=== PATIENT | female | born 1955 | race Caucasian/White ===

== ENCOUNTER → 2020-07-06 | Outpatient (CLI) | payer BC | END | disposition home or self-care (01) | LOC: LABWHC1 16:56 | PROVIDERS: ATTEND Family Medicine | DX: Z53.9 Procedure and treatment not carried out, unspecified reason (principal) ==

== ENCOUNTER 2020-07-09 13:56 | Emergency (ER) | payer BC ==
[2020-07-09] MEDS ORDERED: ALBUTEROL HFA INHALER INHALATION PRN (14:09)
[2020-07-09] MEDS ORDERED: ACETAMINOPHEN TAB 500 MG TAB PO STA (14:09)
[2020-07-09] MEDS ORDERED: ACETAMINOPHEN TAB 500 MG TAB PO PRN (14:09)
[2020-07-09] MEDS ORDERED: ALBUTEROL HFA INHALER INHALATION STA (14:09)
[2020-07-09] MEDS ORDERED: FAMOTIDINE 20 MG/2 ML VIAL IV STA (14:11)
[2020-07-09] MEDS ORDERED: ONDANSETRON 4 MG/2 ML VIAL IM STA (14:11)
[2020-07-09] MEDS ORDERED: SODIUM CHLORIDE 0.9% 500 ML 500 ML IV STA (14:11)
--- NOTE | 2020-07-09 14:13 | ED ---
General Adult HPI - General Chief complaint: Shortness of Breath Stated complaint: SOB. + covid Time Seen by Provider: 07/09/20 13:58 Source: patient, EMS, RN notes reviewed Mode of arrival: EMS Limitations: no limitations - History of Present Illness Initial comments: Patient is a pleasant 65-year-old female presenting to the emergency Department with multiple complaints. Patient was diagnosed positive for Crohn virus over a week ago. Patient has been to a different ER as well as urgent care since that time. Symptoms have been present for over 10 days now. Patient does have cough with some mild shortness of breath. Cough is nonproductive. Patient does have fever or chills and myalgias. Patient has significant fatigue. Patient does have loss of smell. Patient is having some nausea and some diarrhea. - Related Data Previous Rx's Medication Instructions Recorded Albuterol Sulfate [Albuterol 2 puff INHALATION Q6H PRN #1 07/09/20 Sulfate Hfa] inhaler Allergies Allergy/AdvReac Type Severity Reaction Status Date / Time amoxicillin Allergy Rash/Hives Verified 07/09/20 14:06 cefaclor [From Ceclor] Allergy Rash/Hives Verified 07/09/20 14:06 Review of Systems ROS Statement: Those systems with pertinent positive or pertinent negative responses have been documented in the HPI. ROS Other: All systems not noted in ROS Statement are negative. Constitutional: Reports: fever, chills Eyes: Denies: eye pain ENT: Denies: ear pain Respiratory: Reports: cough, dyspnea Cardiovascular: Denies: chest pain Endocrine: Reports: fatigue Gastrointestinal: Reports: nausea, diarrhea. Denies: abdominal pain Genitourinary: Denies: dysuria Musculoskeletal: Denies: arthralgia Skin: Denies: rash Neurological: Denies: weakness Past Medical History Past Medical History: Diabetes Mellitus, Hypertension Past Surgical History: Hernia Repair, Hysterectomy Smoking Status: Never smoker General Exam Limitations: no limitations General appearance: alert, in no apparent distress Head exam: Present: normocephalic Eye exam: Present: normal appearance Neck exam: Present: normal inspection Respiratory exam: Present: normal lung sounds bilaterally Cardiovascular Exam: Present: regular rate, normal rhythm GI/Abdominal exam: Present: soft. Absent: tenderness Extremities exam: Present: normal inspection. Absent: pedal edema, calf tenderness Neurological exam: Present: alert Psychiatric exam: Present: normal affect, normal mood Skin exam: Present: normal color Course Vital Signs 07/09/20 07/09/20 13:58 14:42 Temperature 99.4 F Pulse Rate 97 94 Respiratory 22 22 Rate Blood Pressure 136/67 132/49 O2 Sat by Pulse 98 96 Oximetry EKG Findings - EKG Comments: EKG Findings:: Normal sinus rhythm and 90. WA 148. QRS 92. QT 3:30. QTC 403. Normal axis. Normal QRS. Nonspecific T waves. Medical Decision Making - Medical Decision Making Patient reevaluated and resting comfortably in bed. Patient updated on results. Patient is feeling better and is comfortable with discharge home. - Lab Data Result diagrams: 07/09/20 14:52 07/09/20 14:52 Lab Results 07/09/20 07/09/20 07/09/20 Range/Units 14:52 14:52 14:52 WBC 8.0 (3.8-10.6) k/uL RBC 4.55 (3.80-5.40) m/uL Hgb 13.3 (11.4-16.0) gm/dL Hct 39.3 (34.0-46.0) % MCV 86.3 (80.0-100.0) fL MCH 29.2 (25.0-35.0) pg MCHC 33.8 (31.0-37.0) g/dL RDW 12.8 (11.5-15.5) % Plt Count 203 (150-450) k/uL MPV 7.2 Neutrophils % 79 % Lymphocytes % 13 % Monocytes % 6 % Eosinophils % 0 % Basophils % 0 % Neutrophils # 6.4 (1.3-7.7) k/uL Lymphocytes # 1.0 (1.0-4.8) k/uL Monocytes # 0.5 (0-1.0) k/uL Eosinophils # 0.0 (0-0.7) k/uL Basophils # 0.0 (0-0.2) k/uL PT 9.6 (9.0-12.0) sec INR 0.9 (<1.2) APTT 22.6 (22.0-30.0) sec Sodium 137 (137-145) mmol/L Potassium 3.6 (3.5-5.1) mmol/L Chloride 102 (98-107) mmol/L Carbon Dioxide 27 (22-30) mmol/L Anion Gap 8 mmol/L BUN 12 (7-17) mg/dL Creatinine 0.62 (0.52-1.04) mg/dL Est GFR (CKD-EPI)AfAm >90 (>60 ml/min/1.73 sqM) Est GFR (CKD-EPI)NonAf >90 (>60 ml/min/1.73 sqM) Glucose 131 H (74-99) mg/dL Plasma Lactic Acid [place] (0.7-2.0) mmol/L Calcium 8.8 (8.4-10.2) mg/dL Magnesium 1.7 (1.6-2.3) mg/dL Total Bilirubin 0.5 (0.2-1.3) mg/dL AST 24 (14-36) U/L ALT 15 (4-34) U/L Alkaline Phosphatase 74 (38-126) U/L Lactate Dehydrogenase 455 (313-618) U/L C-Reactive Protein 41.4 H (<10.0) mg/L Total Protein 6.4 (6.3-8.2) g/dL Albumin 3.5 (3.5-5.0) g/dL 07/09/20 Range/Units 14:52 WBC (3.8-10.6) k/uL RBC (3.80-5.40) m/uL Hgb (11.4-16.0) gm/dL Hct (34.0-46.0) % MCV (80.0-100.0) fL MCH (25.0-35.0) pg MCHC (31.0-37.0) g/dL RDW (11.5-15.5) % Plt Count (150-450) k/uL MPV Neutrophils % % Lymphocytes % % Monocytes % % Eosinophils % % Basophils % % Neutrophils # (1.3-7.7) k/uL Lymphocytes # (1.0-4.8) k/uL Monocytes # (0-1.0) k/uL Eosinophils # (0-0.7) k/uL Basophils # (0-0.2) k/uL PT (9.0-12.0) sec INR (<1.2) APTT (22.0-30.0) sec Sodium (137-145) mmol/L Potassium (3.5-5.1) mmol/L Chloride (98-107) mmol/L Carbon Dioxide (22-30) mmol/L Anion Gap mmol/L BUN (7-17) mg/dL Creatinine (0.52-1.04) mg/dL Est GFR (CKD-EPI)AfAm (>60 ml/min/1.73 sqM) Est GFR (CKD-EPI)NonAf (>60 ml/min/1.73 sqM) Glucose (74-99) mg/dL Plasma Lactic Acid [place] 1.8 (0.7-2.0) mmol/L Calcium (8.4-10.2) mg/dL Magnesium (1.6-2.3) mg/dL Total Bilirubin (0.2-1.3) mg/dL AST (14-36) U/L ALT (4-34) U/L Alkaline Phosphatase (38-126) U/L Lactate Dehydrogenase (313-618) U/L C-Reactive Protein (<10.0) mg/L Total Protein (6.3-8.2) g/dL Albumin (3.5-5.0) g/dL - Radiology Data Radiology results: image reviewed (Chest x-ray shows mild patchy infiltrates bilateral lower lungs) Disposition Clinical Impression: COVID-19 Disposition: HOME SELF-CARE Condition: Stable Instructions (If sedation given, give patient instructions): Acute Bronchitis (ED), Acute Nausea and Vomiting (ED) Additional Instructions: Please do follow-up with your primary care physician in the next day or 2 for recheck. Return for difficulty breathing, not tolerating fluids, uncontrolled fevers, worsening symptoms or any other concerns. [id number] Tylenol as needed. Prescription for inhaler has been sent to [facility] in [place]. Continue [id number] vitamin D, 5000 units daily. Also vitamin C 500 mg twice daily. Also zinc daily. Prescriptions: Albuterol Sulfate [Albuterol Sulfate Hfa] 2 puff INHALATION Q6H PRN #1 inhaler PRN Reason: Shortness Of Breath Is patient prescribed a controlled substance at d/c from ED?: No Referrals: Jacky Hoyt DO [Primary Care Provider] - 1-2 days Time of Disposition: 15:33
--- NOTE | 2020-07-09 14:49 | XR ---
EXAM: XR Chest, 1 View CLINICAL HISTORY: ITS.REASON XR Reason: Suspected COVID-19 pneumonia TECHNIQUE: Frontal view of the chest. COMPARISON: None FINDINGS: Hardware: None. Lungs/pleura: Patchy opacities in the right mid and lower lung and left lower lung. No pleural effusion or pneumothorax. Heart/mediastinum: Normal. No cardiomegaly. Soft tissues: Unremarkable. Bones: No acute fracture. Upper abdomen: Normal. IMPRESSION: Patchy opacities in the right mid and lower lung and left lower lung, concerning for an infectious/inflammatory process.
[2020-07-09 15:10] LABS: African American GFR (CKD) >90 (>60 ml/min/1.73 sqM); Anion Gap 8 mmol/L; Blood Urea Nitrogen 12 mg/dL (7-17); Calcium 8.8 mg/dL (8.4-10.2); Carbon Dioxide 27 mmol/L (22-30); Chloride 102 mmol/L (98-107); Glucose 131 mg/dL (74-99); Magnesium 1.7 mg/dL (1.6-2.3); Non-African American GFR(CKD) >90 (>60 ml/min/1.73 sqM); Potassium 3.6 mmol/L (3.5-5.1); Sodium 137 mmol/L (137-145)
[2020-07-09 15:11] LABS: ALT 15 U/L (4-34); AST 24 U/L (14-36); Albumin 3.5 g/dL (3.5-5.0); Alkaline Phosphatase 74 U/L (38-126); Basophils % (A) 0 %; C Reactive Protein 41.4 mg/L (<10.0); Eosinophils % (A) 0 %; HCT 39.3 % (34.0-46.0); HGB 13.3 gm/dL (11.4-16.0); LDH 455 U/L (313-618); Lymphocytes % (A) 13 %; MCH 29.2 pg (25.0-35.0); MCHC 33.8 g/dL (31.0-37.0); MCV 86.3 fL (80.0-100.0); Mean Platelet Volume 7.2; Monocytes # (A) 0.5 k/uL (0-1.0); Monocytes % (A) 6 %; Neutrophils # (A) 6.4 k/uL (1.3-7.7); Neutrophils % (A) 79 %; Platelet Count 203 k/uL (150-450); RBC 4.55 m/uL (3.80-5.40); RDW 12.8 % (11.5-15.5); Total Bilirubin 0.5 mg/dL (0.2-1.3); Total Protein 6.4 g/dL (6.3-8.2)
[2020-07-09 15:13] LABS: INR 0.9 (<1.2); Partial Thromboplastin Time 22.6 sec (22.0-30.0); Prothrombin Time 9.6 sec (9.0-12.0)
[2020-07-09] MEDS ORDERED: IBUPROFEN 400 MG TAB PO STA (15:43)
[2020-07-09 15:58] VITALS: BP 116/62; PULSE 92; RESP 20; TEMP 99.2
[2020-07-09] MEDS ORDERED: ALBUTEROL HFA INHALER INHALATION SCH (20:00)
[2020-07-09 22:48] LABS: Ferritin 329.4 ng/mL (10.0-291.0)
== END 2020-07-09 15:57 | disposition home or self-care (01) ==
LOC: EC 13:56
DX: U07.1 COVID-19 (principal); Z88.0 Allergy status to penicillin; Z88.1 Allergy status to other antibiotic agents; Z90.710 Acquired absence of both cervix and uterus
CPT/HCPCS: 36415; 94640; 93005; 80053; 82728; 83605; 83615; 83735; 85025; 85610; 85730; 86140; 87040; 84145; 71045; 99285; 96374; 96372; 96361; J2405

== ENCOUNTER → 2020-07-20 | Outpatient (CLI) | payer BC ==
--- NOTE | 2020-07-20 15:55 | XR ---
EXAMINATION TYPE: XR chest 2V DATE OF EXAM: 07/20/2020 COMPARISON: Chest x-ray July 09, 2020 HISTORY: covid pneumonia. TECHNIQUE: Frontal and lateral views of the chest are obtained. FINDINGS: There is improved but some persistent peripheral right midlung opacity. No new focal airsp torsten opacity, pleural effusion, or pneumothorax seen bilaterally. The cardiac silhouette size is stabl e and within normal limits. Bridging osteophytes in thoracic spine redemonstrated. IMPRESSION: Resolving right peripheral and basilar acute infiltrate. No new infiltrate is seen.
== END | disposition home or self-care (01) ==
LOC: RAD 15:21
PROVIDERS: ATTEND Nurse Practitioner Family
DX: U07.1 COVID-19 (principal); J12.89 Other viral pneumonia
CPT/HCPCS: 71046

== ENCOUNTER → 2021-11-29 | Outpatient (CLI) | payer BC ==
--- NOTE | 2021-11-29 10:28 | BD ---
EXAMINATION TYPE: Axial Bone Density DATE OF EXAM: 11/29/2021 COMPARISON: NONE CLINICAL HISTORY: 66 years year old Female. ICD-10 CODE: Z03.89 OBSERVATION FOR SUSPECTED METS, C50. 512 Height: 63.5 Weight: 185 FRAX RISK QUESTIONS: History of Fracture in Adulthood: YES Secondary Osteoporosis: YES 3. Menopause before 45: YES RISK FACTORS HISTORY OF: HX OF LT LOWER LEG, 2009, RT SHOULDER/HUMERUS 2007 Postmenopausal woman: COMPLETE HYST 2000 AT AGE 45 YRS OLD Hyperparathyroidism: NO Adrenal Insufficiency: NO MEDICATIONS: Additional Medications: ANASTROZOLE, BP MEDS, HX OF RADIATION LT BREAST CA, 2020, METFORMIN, LEXAPRO, CHOLESTEROL MEDS, VIT D3 AND CALCIUM Additional History: HX OF BREAST CANCER, DIABETIC, CHOLESTEROL, EXAM MEASUREMENTS: Bone mineral densitometry was performed using the [employer]. Bone mineral density as measured about the Lumbar spine is: ----- L1-L4(G/cm2): 1.154 T Score Values are as follows: ----- L1: -1.5 ----- L2: -0.6 ----- L3: -0.2 ----- L4: 1.3 ----- L1-L4: -0.2 Bone mineral density FIRST BONE DENSITY AT [facility] AT [facility] Bone mineral density about the R hip (g/cm2): 0.767 Bone mineral density about the L hip (g/cm2): 0.805 T Score values are as follows: -----R Neck: -2.3 -----L Neck: -2.3 -----R Total: -1.9 -----L Total: -1.6 Bone mineral density FIRST DEXA AT [facility]......[facility] AT [facility] FRAX%s: The graph provided illustrates a 18.7% chance for a major osteoporotic fx and a 3.4% chance f or the hips probability for fx in 10 years time. IMPRESSION: Osteopenia (T Score between -2.5 and -1). There is slightly increased risk of fracture and the patient may be considered for treatment. Re-Screen 2-5 years. NOTE: T-SCORE=SD OF THE YOUNG ADULT MEAN.
== END | disposition home or self-care (01) ==
LOC: RADBDWWP 09:12
PROVIDERS: ATTEND Internal Medicine Hematology & Oncology
DX: M85.89 Other specified disorders of bone density and structure, multiple sites (principal); Z78.0 Asymptomatic menopausal state
CPT/HCPCS: 77080

== ENCOUNTER 2021-12-16 13:58 | Inpatient (IN) | payer BC, MEDICARE ==
[2021-12-16 16:45] LABS: Glucose,Whole Blood 183 mg/dL (75-99)
[2021-12-16] MEDS: ACETAMINOPHEN TAB 325 MG TAB PO PRN (18:29)
[2021-12-16] MEDS ORDERED: HEPARIN SOD,PORK IN 0.45% NACL 25,000 UNIT in 0.45% NACL 1 250ML.BAG IV SCH (18:30)
[2021-12-16 18:58] LABS: Basophils % (A) 1 %; Eosinophils # (A) 0.1 k/uL (0-0.7); Eosinophils % (A) 1 %; HCT 36.2 % (34.0-46.0); HGB 12.1 gm/dL (11.4-16.0); Lymphocytes # (A) 1.2 k/uL (1.0-4.8); Lymphocytes % (A) 18 %; MCHC 33.5 g/dL (31.0-37.0); MCV 89.6 fL (80.0-100.0); Mean Platelet Volume 6.9; Monocytes # (A) 0.4 k/uL (0-1.0); Monocytes % (A) 6 %; Neutrophils % (A) 72 %; Platelet Count 221 k/uL (150-450); RBC 4.04 m/uL (3.80-5.40); RDW 12.6 % (11.5-15.5); WBC 6.9 k/uL (3.8-10.6)
[2021-12-16 19:03] LABS: INR 0.9 (<1.2); Partial Thromboplastin Time 22.1 sec (22.0-30.0)
[2021-12-16 19:15] LABS: ALT 17 U/L (4-34); AST 20 U/L (14-36); African American GFR (CKD) >90 (>60 ml/min/1.73 sqM); Albumin 3.8 g/dL (3.5-5.0); Alkaline Phosphatase 70 U/L (38-126); Anion Gap 6 mmol/L; Blood Urea Nitrogen 11 mg/dL (7-17); Calcium 8.9 mg/dL (8.4-10.2); Carbon Dioxide 25 mmol/L (22-30); Chloride 105 mmol/L (98-107); Glucose 175 mg/dL (74-99); Non-African American GFR(CKD) >90 (>60 ml/min/1.73 sqM); Potassium 4.3 mmol/L (3.5-5.1); Sodium 136 mmol/L (137-145); Total Bilirubin 0.3 mg/dL (0.2-1.3); Total Protein 6.2 g/dL (6.3-8.2)
[2021-12-16] MEDS: HEPARIN SODIUM 1,000 UN/ML (10ML VL) IV PRN (19:58)
[2021-12-16 20:38] LABS: Glucose,Whole Blood 208 mg/dL (75-99)
[2021-12-16] MEDS: INSULIN ASPART (NovoLOG) 100 UNIT/ML VIAL SQ SCH (20:45)
[2021-12-16] MEDS: ASCORBIC ACID 500 MG TAB PO SCH (20:45)
[2021-12-16] MEDS: ESCITALOPRAM 10 MG TAB PO SCH (20:45)
[2021-12-16] MEDS: METOPROLOL SUCCINATE (ER) 100 MG TAB.ER.24H PO SCH (20:45)
[2021-12-16] MEDS ORDERED: ATORVASTATIN 20 MG TAB PO SCH (21:00)
[2021-12-17] MEDS: HEPARIN SODIUM 1,000 UN/ML (10ML VL) IV PRN ×2 (01:56→08:49)
[2021-12-17 06:32] LABS: Glucose,Whole Blood 194 mg/dL (75-99)
[2021-12-17] MEDS: INSULIN ASPART (NovoLOG) 100 UNIT/ML VIAL SQ SCH ×4 (06:40→20:50)
[2021-12-17] MEDS ORDERED: HEPARIN SODIUM,PORCINE 2,500 UNIT in SODIUM CHLORIDE 0.9% 250 ML IRRIGATION PRN (07:00)
[2021-12-17] MEDS ORDERED: HEPARIN SODIUM,PORCINE 10,000 UNIT in SODIUM CHLORIDE 0.9% 1,000 ML IRRIGATION PRN (07:00)
[2021-12-17 08:08] LABS: Basophils % (A) 0 %; Eosinophils # (A) 0.1 k/uL (0-0.7); Eosinophils % (A) 2 %; HCT 35.6 % (34.0-46.0); HGB 11.8 gm/dL (11.4-16.0); Lymphocytes # (A) 1.4 k/uL (1.0-4.8); Lymphocytes % (A) 28 %; MCH 29.9 pg (25.0-35.0); MCHC 33.2 g/dL (31.0-37.0); MCV 89.9 fL (80.0-100.0); Monocytes # (A) 0.3 k/uL (0-1.0); Monocytes % (A) 6 %; Neutrophils # (A) 3.2 k/uL (1.3-7.7); Neutrophils % (A) 62 %; Platelet Count 201 k/uL (150-450); RBC 3.96 m/uL (3.80-5.40); RDW 12.5 % (11.5-15.5); WBC 5.2 k/uL (3.8-10.6)
[2021-12-17 08:23] LABS: Partial Thromboplastin Time 34.8 sec (22.0-30.0); Prothrombin Time 10.5 sec (9.0-12.0)
[2021-12-17 08:24] LABS: ALT 14 U/L (4-34); AST 19 U/L (14-36); African American GFR (CKD) >90 (>60 ml/min/1.73 sqM); Albumin 3.6 g/dL (3.5-5.0); Alkaline Phosphatase 70 U/L (38-126); Anion Gap 4 mmol/L; Blood Urea Nitrogen 10 mg/dL (7-17); Calcium 8.5 mg/dL (8.4-10.2); Carbon Dioxide 26 mmol/L (22-30); Chloride 107 mmol/L (98-107); Glucose 185 mg/dL (74-99); Non-African American GFR(CKD) >90 (>60 ml/min/1.73 sqM); Potassium 3.9 mmol/L (3.5-5.1); Sodium 137 mmol/L (137-145); Total Bilirubin 0.2 mg/dL (0.2-1.3); Total Protein 5.9 g/dL (6.3-8.2)
[2021-12-17] MEDS: ASPIRIN 325 MG TAB PO SCH (08:42)
[2021-12-17] MEDS: CHOLECALCIFEROL 25 MCG (1000 IU) TABLET PO SCH (08:42)
--- NOTE | 2021-12-17 08:58 | P.GSCN ---
History of Present Illness Consult date: 12/17/21 Reason for Consult: Coronary artery disease, non-ST elevated myocardial infarction this admission Requesting physician: Garry Poole History of present illness: This is a 66-year-old female patient who follows with Dr. Jacky Hoyt on an outpatient basis for her primary care. She has a past medical history significant for hypertension, hyperlipidemia, type 2 diabetes mellitus, obesity, anxiety, breast cancer with a left lumpectomy and 15 radiation treatments in May 2021, she is a lifetime nonsmoker and has a family history of early onset coronary artery disease with her dad having a myocardial infarction at age 51. She presented to [facility] on Monday evening 12/15/2021 with complaints of substernal chest pain associated with some shortness of breath. She reports that she has been having these episodes of chest pain off and on for the past 2 weeks, but this current episode was bad enough she felt she needed to seek medical attention. She denies any recent fever, chills, nausea, vomiting, lightheadedness, presyncope, syncope or palpitations. Labs from [facility] showed a WBC count of 5.6, hemoglobin 12.6, hematocrit 36.9, platelets 209, sodium 135, potassium 3.9, BUN 12, creatinine 0.9, glucose 388, proBNP 518, and an abnormal troponin. Subsequently, due to the patient's presenting symptoms and abnormal troponins she was admitted for further evaluation and treatment. A transthoracic 2-D echocardiogram was completed yesterday 12/16/2021 which demonstrated her left ventricular systolic function to be mildly decreased with an ejection fraction of 40-45%, moderate mitral valve regurgitation, trace tricuspid and no pericardial or pleural effusion. The patient also underwent a cardiac catheterization which demonstrated a 50-60% stenosis to her midportion of her right coronary artery, a critical lesion to her obtuse marginal branch of her circumflex coronary artery, a subtotally occluded circumflex coronary artery and a 90-95% stenosis to the takeoff of her proximal left anterior descending coronary artery. Due to the findings on the cardiac catheterization the patient was subsequently transferred here to [facility] for further evaluation and treatment recommendations from cardiothoracic surgery. Review of Systems A 14 point review of systems was completed and was negative except as mentioned in the HPI. Past Medical History Past Medical History: Cancer, Diabetes Mellitus, Hyperlipidemia, Hypertension Additional Past Medical History / Comment(s): Left breast CA History of Any Multi-Drug Resistant Organisms: None Reported Past Surgical History: Section, Hernia Repair, Hysterectomy Additional Past Surgical History / Comment(s): Left breast lumpectomy, with 15 radiation treatments in May 2021 Past Anesthesia/Blood Transfusion Reactions: No Reported Reaction Past Psychological History: Anxiety Smoking Status: Never smoker Past Alcohol Use History: None Reported Past Drug Use History: None Reported - Past Family History Father Family Medical History: Coronary Artery Disease (CAD), Myocardial Infarction (LA) Additional Family Medical History / Comment(s): CABG at 51, at 61 Mother Family Medical History: Hypertension Medications and Allergies Home Medications Medication Instructions Recorded Confirmed Type Aspirin EC [Ecotrin Low Dose] 81 mg PO HS 07/09/20 12/16/21 History Escitalopram Oxalate [Lexapro] 10 mg PO HS 07/09/20 12/16/21 History Metoprolol Succinate (ER) [Toprol 100 mg PO HS 07/09/20 12/16/21 History Xl] Alendronate Sodium [Fosamax] 70 mg PO FR@0900 12/16/21 12/16/21 History Anastrozole [Arimidex] 1 mg PO HS 12/16/21 12/16/21 History Ascorbic Acid [Vitamin C] 1,000 mg PO HS 12/16/21 12/16/21 History Atorvastatin [Lipitor] 20 mg PO HS 12/16/21 12/16/21 History Cholecalciferol [Vitamin D3 (25 25 mcg PO DAILY 12/16/21 12/16/21 History Mcg = 1000 Iu)] metFORMIN HCL [Glucophage] 2,000 mg PO HS 12/16/21 12/16/21 History Allergies Allergy/AdvReac Type Severity Reaction Status Date / Time amoxicillin Allergy Rash/Hives Verified 12/16/21 16:57 cefaclor [From Ceclor] Allergy Rash/Hives Verified 12/16/21 16:57 Surgical - Exam Vital Signs Temp Pulse Resp BP Pulse Ox 97.8 F 92 18 138/67 95 12/16/21 16:00 12/16/21 16:00 12/16/21 16:00 12/16/21 16:00 12/16/21 16:00 - General Lying in bed on the third floor cardiac stepdown unit, is pleasant, cooperative, and is in no acute apparent distress. well developed, well nourished, no distress, no pain, obese - Eyes PERRL, normal ocular movement, no pale, no icteric - ENT normal pinna, normal nares, normal mucosa, no hearing loss, no congestion - Neck Neck is supple, no lymphadenopathy. no masses, no bruits, trachea midline, no venous distension - Respiratory Lungs sounds essentially clear throughout, no wheezes, rhonchi or crackles. Respirations are symmetrical and nonlabored. - Cardiovascular Regular rhythm and rate. S1 and S2 present, negative for S3, gallop or murmur. No edema present. - Abdomen Abdomen is soft, nontender and nondistended. Active bowel sounds present all 4 abdominal quadrants. No guarding or rigidity. Umbilical hernia. - Integumentary Skin is warm and dry, no clubbing or cyanosis present. no rash, no growths, no abnormal pigmentation - Neurologic No focal deficits. normal coordination, normal sensation - Musculoskeletal Strength equal bilateral. normal gait, normal posture - Psychiatric oriented to time, oriented to person, oriented to place, speech is normal, memory intact Results - Labs 12/17/21 07:29 12/17/21 07:29 Abnormal Lab Results - Last 24 Hours (Table) 12/16/21 12/16/21 12/16/21 Range/Units 16:43 18:33 20:20 APTT (22.0-30.0) sec Sodium 136 L (137-145) mmol/L Glucose 175 H (74-99) mg/dL POC Glucose (mg/dL) 183 H 208 H (75-99) mg/dL Total Protein 6.2 L (6.3-8.2) g/dL 12/17/21 12/17/21 12/17/21 Range/Units 06:18 07:29 07:29 APTT 34.8 H (22.0-30.0) sec Sodium (137-145) mmol/L Glucose 185 H (74-99) mg/dL POC Glucose (mg/dL) 194 H (75-99) mg/dL Total Protein 5.9 L (6.3-8.2) g/dL Diabetes panel 12/16/21 12/17/21 Range/Units 18:33 07:29 Sodium 136 L 137 (137-145) mmol/L Potassium 4.3 3.9 (3.5-5.1) mmol/L Chloride 105 107 (98-107) mmol/L Carbon Dioxide 25 26 (22-30) mmol/L BUN 11 10 (7-17) mg/dL Creatinine 0.64 0.61 (0.52-1.04) mg/dL Glucose 175 H 185 H (74-99) mg/dL Calcium 8.9 8.5 (8.4-10.2) mg/dL AST 20 19 (14-36) U/L ALT 17 14 (4-34) U/L Alkaline Phosphatase 70 70 (38-126) U/L Total Protein 6.2 L 5.9 L (6.3-8.2) g/dL Albumin 3.8 3.6 (3.5-5.0) g/dL Calcium panel 12/16/21 12/17/21 Range/Units 18:33 07:29 Calcium 8.9 8.5 (8.4-10.2) mg/dL Albumin 3.8 3.6 (3.5-5.0) g/dL Pituitary panel 12/16/21 12/17/21 Range/Units 18:33 07:29 Sodium 136 L 137 (137-145) mmol/L Potassium 4.3 3.9 (3.5-5.1) mmol/L Chloride 105 107 (98-107) mmol/L Carbon Dioxide 25 26 (22-30) mmol/L BUN 11 10 (7-17) mg/dL Creatinine 0.64 0.61 (0.52-1.04) mg/dL Glucose 175 H 185 H (74-99) mg/dL Calcium 8.9 8.5 (8.4-10.2) mg/dL Adrenal panel 12/16/21 12/17/21 Range/Units 18:33 07:29 Sodium 136 L 137 (137-145) mmol/L Potassium 4.3 3.9 (3.5-5.1) mmol/L Chloride 105 107 (98-107) mmol/L Carbon Dioxide 25 26 (22-30) mmol/L BUN 11 10 (7-17) mg/dL Creatinine 0.64 0.61 (0.52-1.04) mg/dL Glucose 175 H 185 H (74-99) mg/dL Calcium 8.9 8.5 (8.4-10.2) mg/dL Total Bilirubin 0.3 0.2 (0.2-1.3) mg/dL AST 20 19 (14-36) U/L ALT 17 14 (4-34) U/L Alkaline Phosphatase 70 70 (38-126) U/L Total Protein 6.2 L 5.9 L (6.3-8.2) g/dL Albumin 3.8 3.6 (3.5-5.0) g/dL Assessment and Plan Assessment: 1. Symptomatic multivessel coronary artery disease 2. Non-ST elevated myocardial infarction this admission 3. Hypertension 4. Hyperlipidemia 5. Type 2 diabetes mellitus, admission glucose 388 6. History of breast cancer, status post left lumpectomy with 15 radiation treatment in May 2021 7. Family history of early onset coronary artery disease with her father having a myocardial infarction at age 51 and at age 61 8. Lifetime nonsmoker Plan: The patient was seen and examined at her bedside on the cardiac stepdown unit. Her chart and diagnostics were reviewed. Her case was discussed in detail with Dr. Conchita Nolan from cardiothoracic surgery. Preoperative testing and preoperative teaching has been initiated. Once her preoperative testing has been completed an STS risk score will be calculated in discussed with the patient. We will obtain a 5 m walk test. Medical management and other com orbidities per primary care service. Continue to optimize medical management with aspirin, statin and beta be. Heparin drip management per cardiology recommendations. More recommendations to follow based on patient's clinical course. Thank you Dr. Poole for this consult and we look forward to working with you in the care of this patient. Patient seen and examined. Cardiac catheterization reviewed. Non-STEMI with nonsignificant RCA disease, significant diagonal and obtuse marginal artery stenosis with an unknown LAD anatomy that could be 100% occluded at the takeoff of diagonal. Poorly controlled diabetes. EF 40-45% with moderate mitral valve regurgitation. No evidence of anterior wall dysfunction or apical dyskinesia. EKG shows no Q waves. Case discussed with Dr. Taylor and Dr. Puente. I would not be opposed to an initial PCI strategy to her obtuse marginal artery and what seems to be a diagonal artery with aggressive guideline Dir. medical therapy rather than a surgical revascularization strategy despite being diabetic. CONCHITA NOLAN MD I have personally seen and examined the patient, performed the documentation and the assessment and plan as written. Number of minutes spent on the visit 30 minutes . Bernard WORTHINGTON
[2021-12-17 09:21] LABS: Magnesium 1.8 mg/dL (1.6-2.3)
[2021-12-17] MEDS ORDERED: ALPRAZolam 0.25 MG TAB PO PRN (10:21)
[2021-12-17] MEDS ORDERED: NITROGLYCERIN SL TABS 0.4 MG TAB SUBLINGUAL PRN (10:21)
[2021-12-17] MEDS: SODIUM CHLORIDE 0.9% 1,000 ML in EMPTY BAG 1 BAG IV SCH ×3 (10:37→20:51)
[2021-12-17 11:32] LABS: Appearance,Urine Clear (Clear); Bilirubin,Urine Negative (Negative); Blood,Urine Negative (Negative); Color,Urine Yellow; Glucose,Urine (UA) 4+ (Negative); Ketones,Urine Trace (Negative); Leukocyte Esterase,Urine Negative (Negative); Nitrite,Urine Negative (Negative); PH, Urine 5.5 (5.0-8.0); Protein,Urine Trace (Negative); Specific Gravity,Urine 1.023 (1.001-1.035); Urobilinogen,Urine <2.0 mg/dL (<2.0)
[2021-12-17 11:48] LABS: Glucose,Whole Blood 258 mg/dL (75-99)
[2021-12-17] MEDS ORDERED: HEPARIN SODIUM 1,000 UN/ML (10ML VL) ONE ×2 (12:27→13:52)
[2021-12-17] MEDS ORDERED: IV FLUID CONTINUATION 150 ML IV ONE (12:29)
[2021-12-17] MEDS ORDERED: MIDAZOLAM 2 MG/2 ML VIAL IVP ONE ×2 (12:30→13:02)
[2021-12-17] MEDS ORDERED: LIDOCAINE 1% INJ 10MG/ML (30 ML VIAL-PF) SQ ONE (12:34)
[2021-12-17] MEDS ORDERED: fentaNYL (PF) 50 MCG/ML 2 ML AMP ONE (12:39)
[2021-12-17] MEDS: fentaNYL (PF) 50 MCG/ML 2 ML AMP IVP ONE ×2 (12:40→12:43)
[2021-12-17] MEDS: HEPARIN SODIUM 1,000 UN/ML (10ML VL) IVP ONE ×3 (12:47→13:24)
[2021-12-17] MEDS ORDERED: niCARdipine 25 MG/10 ML VIAL ONE (12:53)
[2021-12-17] MEDS ORDERED: NITROGLYCERIN 1000MCG/10ML SYRINGE INTRACORON ONE (13:13)
[2021-12-17] MEDS ORDERED: HEPARIN SODIUM 1,000 UN/ML (10ML VL) IVP ONE (13:53)
[2021-12-17] MEDS ORDERED: TICAGRELOR 90 MG TAB ONE (13:55)
[2021-12-17] MEDS ORDERED: SODIUM CHLORIDE 0.9% 1,000 ML IV ONE (13:57)
[2021-12-17] MEDS ORDERED: IOPAMIDOL-370 125ML BTL INJ ONE (13:57)
[2021-12-17] MEDS ORDERED: TICAGRELOR 90 MG TAB PO ONE (13:57)
[2021-12-17] MEDS ORDERED: ATROPINE SULFATE 0.1 MG/ML 10ML SYRINGE IV PRN (14:08)
[2021-12-17] MEDS ORDERED: ZOLPIDEM 5 MG TAB PO PRN (14:08)
[2021-12-17] MEDS ORDERED: MAG HYDROX/AL HYDROX/SIMETH 30 ML CUP PO PRN (14:08)
[2021-12-17] MEDS ORDERED: RX INFO: IV CONTRAST WAS GIVEN 1 EACH MISC MISCELLANE PRN (14:08)
[2021-12-17] MEDS ORDERED: SODIUM CHLORIDE 0.9% 1,000 ML in EMPTY BAG 1 BAG IV SCH (14:15)
--- NOTE | 2021-12-17 14:18 | P.PCN ---
Date of Procedure: 12/17/21 Operative Findings: PERCUTANEOUS CORONARY INTERVENTION Performing physician Garry Poole M.D. Procedure Performed: 1. Successful stenting of the first obtuse marginal branch of the LCx using 2.75 x 15 mm Xience drug-eluting stent with an excellent angiographic results. 2. Successful stending of the proximal LAD using 3.0 x 15 mm Xience drug-eluting stent with an excellent angiographic result. 3. Placement of Impella in the left ventricle 4. Selective right common femoral artery angiogram 5. Ultrasound-guided access of the right common femoral artery 6. Left heart catheterization Indication: This is a 66-year-old female patient with diabetes and hypertension and dyslipidemia who presented initially to [facility] with chest discomfort and was diagnosed with acute coronary syndrome. She underwent a heart catheterization over there and that revealed critical 2 vessels CAD. She was seen by cardiac thoracic surgeon. She deemed to be not a good candidate for bypass surgery. For that reason she was brought today to undergo an intervention Approach: Right common femoral artery Complications: None Level of Sedation: Moderate with a sedation length of 90 minutes Procedure Discussion: Please refer to diagnosed sick heart catheterization was performed at [facility] The patient was brought to the cardiac geophysical laboratory supervisor. The right common femoral artery was cannulated using puncture technique under ultrasound guidance, the micropuncture wire passed easily then the micropuncture sheath was advanced over the wire. The sheath and dilator were pulled out and I did selective right common femoral artery to assure a good position of the sheath. After that I did advanced an 035 wire. Then I placed a 6-Malawian sheath. Subsequently I placed two perclose at 10:00 and 2:00 o'clock. Subsequently I placed a stiff 035 wire which was an Amplatzer wire in the right femoral sheath which was now 8-Malawian sheath. After that I upgraded my sheath in the 14-Malawian sheath using an 8 and 10 and 12 dilator was. At that point anticoagulation was initiated using heparin with continuous ACT monitoring. Subsequently across the aortic valve using 035 wire and the pigtail catheter. Subsequently I did pulled 035 wire and I advanced an 018 wire in the pigtail catheter to the apex of the LV. Then I advanced the Impella over an 018 wire to the LV. We assured good opposition under fluoroscopy guidance and subsequently it was turned on. Then I did engage the left main using an EBU 3.5 guiding catheter. I rewire the LCx initially then OM using a whisper wire. Predilatation was performed using 2.5 mm balloon before I deployed 2.75 x 15 mm stent where the stent was positioned under fluoroscopy guidance and deployed under its nominal pressure. The following angiogram showed excellent angiographic results. Attempting wire in the LAD was unsuccessful because of the guide was deep seated in the left main which was very short and going toward the left circumflex. For that reason I exchanged my EBU guide into JL 4 short-tipped guide. Then I wire the LAD using a whisper wire. Attempting advancing the balloon was unsuccessful I did after that wire the LAD using a jesus wire. With that I was able to advance 2.5 x 12 mm balloon were the balloon was inflated under 18 angelito for 20 seconds. After that I placed 3.0 x 15 mm stent where the stent was positioned under fluoroscopy guidance and deployed under its nominal pressure. The final angiogram showed good angiographic results and the procedure was completed without any complication Please note that I did left heart catheterization using the pigtail catheter and the LVEDP was 20 mmHg. After that and after the procedure was completed impella was pulled out completely and I did close the groin using the two perclose with excellent hemostasis by the end. Postprocedure Management: 1. Dual antiplatelet therapy for at least 12 months. The patient will be on aspirin as well as Brilinta 2. Aggressive cholesterol control 3. Follow-up with the patient
[2021-12-17 14:42] LABS: Glucose,Whole Blood 172 mg/dL (75-99)
[2021-12-17 15:12] LABS: Chol/HDL Ratio 3.77 Ratio; LDL Cholesterol,Calculated -2.2 mg/dL (0.0-131.0)
[2021-12-17 15:16] LABS: Hepatitis A Antibody IgM Nonreactive (Nonreactive); Hepatitis B Core IgM Nonreactive (Nonreactive); Hepatitis B Surface Antigen Nonreactive (Nonreactive); Hepatitis C IgG Antibody Nonreactive (Nonreactive)
--- NOTE | 2021-12-17 15:17 | CONS ---
CONSULTATION This is a 66-year-old lady who was transferred from [facility] when she presented there with chest pain and had a mild troponin elevation and cardiac cath revealed total occlusion of LAD with a significant lesion in the diagonal and also obtuse marginal. Dominant RCA had no critical lesions. She was advised to be transferred here for surgical consultation with Dr. Nolan. Following the consultation, Dr. Nolan felt that she is better off with percutaneous intervention. Dr. Poole will therefore perform two-vessel intervention, which will be a high-risk intervention. I saw the patient this morning. She is comfortable resting without any chest pain, shortness of breath or palpitations. She understands the risks, benefits and rationale related to the procedure and wishes to proceed. She has multiple comorbid conditions in the form of type 2 diabetes, hypertension and hyperlipidemia. Physical exam revealed that vital signs are stable. There is no JVD. S1-S2 heard normally. Short systolic murmur is audible at the base. Lungs reveal bilateral decent air entry. Abdomen is soft, nontender. Lower extremities reveal normal pulses. No edema. Central nervous system is normal. IMPRESSION: 1. Ugn-TE-ydmoodktr myocardial infarction with significant coronary artery disease. She was evaluated by Dr. Nolan, who felt that percutaneous approach would be superior to surgical. 2. Type 2 diabetes. RECOMMENDATIONS: Patient will proceed with PCI of two vessels to be performed by Dr. Poole. MMODL / NURAN: [id number] /
[2021-12-17 16:12] LABS: Basophils % (A) 1 %; Eosinophils # (A) 0.1 k/uL (0-0.7); Eosinophils % (A) 2 %; HCT 34.6 % (34.0-46.0); HGB 11.7 gm/dL (11.4-16.0); Lymphocytes # (A) 1.3 k/uL (1.0-4.8); Lymphocytes % (A) 26 %; MCH 30.3 pg (25.0-35.0); MCV 89.2 fL (80.0-100.0); Mean Platelet Volume 6.8; Monocytes # (A) 0.3 k/uL (0-1.0); Monocytes % (A) 7 %; Neutrophils # (A) 3.1 k/uL (1.3-7.7); Neutrophils % (A) 62 %; Platelet Count 216 k/uL (150-450); RBC 3.87 m/uL (3.80-5.40); RDW 12.4 % (11.5-15.5)
--- NOTE | 2021-12-17 16:19 | CT ---
EXAMINATION TYPE: CT brain wo con DATE OF EXAM: 12/17/2021 HISTORY: cva. Acute onset neuro deficit. CT DLP: 1182.6 mGycm. Automated Exposure Control for Dose Reduction was Utilized. TECHNIQUE: CT scan of the head is performed without contrast. COMPARISON: None. FINDINGS: There is no acute intracranial hemorrhage or midline shift identified. Ventricles and sul ci are within normal limits in size for patient's age. Hernandez-white matter differentiation is maintaine d. Some patchy cerumen in the deep external auditory canals bilaterally. The globes are intact and t he visualized sinuses are clear. IMPRESSION: No acute intracranial hemorrhage or midline shift.
[2021-12-17 16:23] LABS: Partial Thromboplastin Time 57.7 sec (22.0-30.0); Prothrombin Time 10.4 sec (9.0-12.0)
[2021-12-17 16:36] VITALS: BMI 32.5
--- NOTE | 2021-12-17 17:10 | CT ---
EXAMINATION TYPE: CODE STROKE: CTA head neck CT DLP: 607.7 mGycm, Automated exposure control for dose reduction was used. DATE OF EXAM: 12/17/2021 4:45 PM COMPARISON: CT brain same day.. CLINICAL INDICATION:Female, 66 years old with history of stroke;, cva TECHNIQUE: Axially acquired helical CT angiogram of the head and neck was obtained with contrast util izing 75 cc of Isovue-370 administered intravenously. Axial images are supplemented with 3D reconstru ctions which were post-processed at an independent workstation. NASCET criteria used. FINDINGS: CTA HEAD: No evidence of acute intracranial hemorrhage, mass effect, or midline shift. The ventricles, sulci, a nd cisterns are unremarkable. The visualized portions of the internal carotid arteries, middle cerebral arteries, anterior cerebral arteries, and posterior cerebral arteries are patent. The basilar and vertebral arteries are patent. CTA NECK: Right Carotid System: The common carotid artery and external carotid artery are patent. The carotid bifurcation demonstrate s no evidence of hemodynamically significant stenosis. The remaining portions of the internal carotid artery demonstrate normal size without significant narrowing. Left Carotid System: The common carotid artery and external carotid artery are patent. The carotid bifurcation demonstrate s no evidence of hemodynamically significant stenosis. The remaining portions of the internal carotid artery demonstrate normal size without significant narrowing. Vertebral arteries are patent without evidence hemodynamically significant stenosis. There is a three-vessel aortic arch. The origins of the great vessels are patent. No evidence of hemo dynamically significant stenosis. IMPRESSION: 1. No evidence of dissection of the cervical internal carotid arteries or vertebral arteries or any e vidence of significant stenosis at the carotid bifurcations. 2. No evidence of high-grade stenosis or intracranial aneurysm.
--- NOTE | 2021-12-17 17:23 | HP ---
HISTORY AND PHYSICAL CHIEF COMPLAINT: Chest pain. HISTORY OF PRESENT ILLNESS: This 66-year-old woman with a past medical history of diabetes, hypertension and hyperlipidemia was admitted to [facility]. The patient had features of acute bsw-WZ-zjhlcsj-elevation myocardial infarction. Patient had cardiac and patient had multivessel disease. The patient was referred for possible cardiac surgery evaluation, which is ongoing. Patient is also being planned for cardiac catheterization and stenting. There is no history of any fever, rigor or chills. The patient is followed by Dr. Jacky Hoyt in the outpatient setting. The patient underwent stent and impella. had a breif period of aphasia. Seen by neuro. Dr Soto: Medications vs tia. Her ordered 2 d echo. PAST MEDICAL HISTORY: Diabetes mellitus, hypertension, hyperlipidemia. MEDICATIONS: Home medications prior to admission reviewed. They include metformin. Doses and the rest of the medications are reviewed. ALLERGIES: AMOXICILLIN. FAMILY HISTORY: History of CAD. SOCIAL HISTORY: No history of smoking. REVIEW OF SYSTEMS: Fourteen-point review of systems negative except as mentioned earlier. PHYSICAL EXAMINATION: Pulse is 83, blood pressure 150/57, respiration 18. HEENT: Conjunctivae normal. NECK: No jugular venous distention. CARDIOVASCULAR: S1, S2 muffled. RESPIRATION: Breath sounds diminished at the bases. No rhonchi. No crackles. ABDOMEN: Soft, nontender. LEGS: No edema. No swelling. NERVOUS SYSTEM: No focal deficit. SKIN: No ulcer, rash, bleeding. JOINTS: No active deforming arthropathy. LABS: Reviewed. Glucose 185. ASSESSMENT: 1. Acute xkg-YF-xbgkwtk-elevation myocardial infarction, status post cardiac and multivessel coronary artery disease. Tia vs meication induced apahsia, change in mental status. 2. Diabetes mellitus, type 2. 3. Hypertension. 4. Hyperlipidemia. RECOMMENDATIONS AND DISCUSSION: I recommend to continue current medications, continue with the monitoring, symptomatic treatment. Closely follow with Cardiothoracic Surgery and Cardiology. Antiplatelet agents. Cardiac catheterization and possible stenting today. Prognosis guarded. Further recommendations to follow. See orders for further details.C/W antiplatelts, Neurochecks, 2 decho. See orders for details. MMODL / IJN: [id number] / MTDD
[2021-12-17 17:28] LABS: Glucose,Whole Blood 144 mg/dL (75-99)
[2021-12-17] MEDS: PANTOPRAZOLE 40 MG TABLET PO SCH (17:37)
[2021-12-17 20:21] LABS: Glucose,Whole Blood 168 mg/dL (75-99)
[2021-12-17] MEDS: ATORVASTATIN 80 MG TAB PO SCH (20:49)
[2021-12-17] MEDS: ASCORBIC ACID 500 MG TAB PO SCH (20:49)
[2021-12-17] MEDS: ACETAMINOPHEN TAB 325 MG TAB PO PRN (20:49)
[2021-12-17] MEDS: TICAGRELOR 90 MG TAB PO SCH (20:49)
[2021-12-17] MEDS: METOPROLOL SUCCINATE (ER) 100 MG TAB.ER.24H PO SCH (20:50)
[2021-12-17] MEDS: ESCITALOPRAM 10 MG TAB PO SCH (20:50)
[2021-12-17] MEDS: MUPIROCIN 2% OINT 22 GM TUBE NASAL SCH (20:50)
[2021-12-17] MEDS: NITROGLYCERIN SL TABS 0.4 MG TAB SUBLINGUAL PRN ×2 (23:17→23:29)
[2021-12-17] MEDS: ALPRAZolam 0.5 MG TAB PO PRN (23:30)
[2021-12-18 06:07] LABS: Basophils % (A) 0 %; Eosinophils # (A) 0.1 k/uL (0-0.7); Eosinophils % (A) 1 %; HCT 32.8 % (34.0-46.0); HGB 11.1 gm/dL (11.4-16.0); Lymphocytes % (A) 15 %; MCH 30.6 pg (25.0-35.0); MCHC 33.9 g/dL (31.0-37.0); MCV 90.4 fL (80.0-100.0); Mean Platelet Volume 7.1; Monocytes # (A) 0.4 k/uL (0-1.0); Monocytes % (A) 7 %; Neutrophils # (A) 4.9 k/uL (1.3-7.7); Neutrophils % (A) 74 %; Platelet Count 205 k/uL (150-450); RBC 3.63 m/uL (3.80-5.40); RDW 12.6 % (11.5-15.5); WBC 6.5 k/uL (3.8-10.6)
[2021-12-18 06:19] LABS: African American GFR (CKD) >90 (>60 ml/min/1.73 sqM); Anion Gap 7 mmol/L; Blood Urea Nitrogen 6 mg/dL (7-17); Calcium 8.6 mg/dL (8.4-10.2); Carbon Dioxide 24 mmol/L (22-30); Chloride 106 mmol/L (98-107); Glucose 157 mg/dL (74-99); Non-African American GFR(CKD) >90 (>60 ml/min/1.73 sqM); Potassium 3.8 mmol/L (3.5-5.1); Sodium 137 mmol/L (137-145)
[2021-12-18 06:43] LABS: Glucose,Whole Blood 181 mg/dL (75-99)
[2021-12-18] MEDS: INSULIN ASPART (NovoLOG) 100 UNIT/ML VIAL SQ SCH ×4 (06:50→20:38)
[2021-12-18] MEDS: PANTOPRAZOLE 40 MG TABLET PO SCH (06:50)
--- NOTE | 2021-12-18 10:02 | P.CNNES ---
History of Present Illness Consult date: 12/17/21 Requesting physician: Garry Poole Reason for Consult: Rule out stroke/strole code History of Present Illness: Patient is a 66-year-old female who had suffered from chest pain yesterday. Patient initially presented to [facility] and was diagnosed with non- STEMI. Patient underwent cardiac catheterization with right radial approach, and was found to have some occlusion and narrowing in the LAD and circumflex. Patient was considered a candidate for open heart surgery. Patient was transferred to [facility], and underwent another cardiac catheterization today at 2 PM and Impala device was used, and 2 stents were deployed to the first obtuse marginal branch of the left circumflex and another stent to the proximal LAD. Patient was subsequently transferred to ICU. Patient's neuro checks were int act. Patient was also given 75 g of fentanyl and 3 mg of Versed during the procedure. Patient went to sleep. The nurses woke her up at 3:25 PM, when patient was noted to have an episode of aphasia, in which she was unable to express herself. She had no paralysis, facial droop or weakness of the extremities. Stroke code was activated. Her NIH stroke scale was reported as 4 related to aphasia. Her significant expressive aphasia lasted for 1 minute and then rapidly improved and the symptoms will completely resolved in "a couple minutes" as per statement of the nurse. At present her NIH stroke scale is 0. Patient has received Brilinta 120 mg loading dose at 1:57 PM and heparin 1200 unit IV loading dose at 1:53 PM. Patient underwent stat computed tomography scan of the head, which revealed no acute intracranial process. I personally reviewed CT head and agree with the findings. CTA of head and neck was ordered, which revealed no evidence of dissection of the cervical internal carotid arteries or vertebral arteries or any evidence of significant stenosis at the carotid bifurcation. No evidence of high-grade stenosis or intracranial aneurysm. I came to see patient shortly after, and patient was doing well, with no focal deficits. Patient denies any headache. No numbness tingling focal weakness. Patient's home medications was Lexapro 10 mg aspirin 81 mg, metoprolol, metformin, vitamin D, Lipitor 20 mg and Fosamax. Her blood test shows normal CBC, PT is 10.5, INR 1.0 and PTT 34.8. Chem-7 is normal. Hepatic panel normal. Review of Systems All 14 points of review systems reviewed, unremarkable except as mentioned in HPI. Denies any chest pain, abdominal pain at this time. No fever or chills. Past Medical History Past Medical History: Cancer, Diabetes Mellitus, Hyperlipidemia, Hypertension Additional Past Medical History / Comment(s): Left breast CA History of Any Multi-Drug Resistant Organisms: None Reported Past Surgical History: Section, Hernia Repair, Hysterectomy Additional Past Surgical History / Comment(s): Left breast lumpectomy, with 15 radiation treatments in May 2021 Past Anesthesia/Blood Transfusion Reactions: No Reported Reaction Past Psychological History: Anxiety Smoking Status: Never smoker Past Alcohol Use History: None Reported Past Drug Use History: None Reported - Past Family History Father Family Medical History: Coronary Artery Disease (CAD), Myocardial Infarction ([place]) Additional Family Medical History / Comment(s): CABG at 51, at 61 Mother Family Medical History: Hypertension Medications and Allergies Home Medications Medication Instructions Recorded Confirmed Type Aspirin EC [Ecotrin Low Dose] 81 mg PO HS 07/09/20 12/16/21 History Escitalopram Oxalate [Lexapro] 10 mg PO HS 07/09/20 12/16/21 History Metoprolol Succinate (ER) [Toprol 100 mg PO HS 07/09/20 12/16/21 History Xl] Alendronate Sodium [Fosamax] 70 mg PO FR@0900 12/16/21 12/16/21 History Anastrozole [Arimidex] 1 mg PO HS 12/16/21 12/16/21 History Ascorbic Acid [Vitamin C] 1,000 mg PO HS 12/16/21 12/16/21 History Atorvastatin [Lipitor] 20 mg PO HS 12/16/21 12/16/21 History Cholecalciferol [Vitamin D3 (25 25 mcg PO DAILY 12/16/21 12/16/21 History Mcg = 1000 Iu)] metFORMIN HCL [Glucophage] 2,000 mg PO HS 12/16/21 12/16/21 History Allergies Allergy/AdvReac Type Severity Reaction Status Date / Time amoxicillin Allergy Rash/Hives Verified 12/16/21 16:57 cefaclor [From Ceclor] Allergy Rash/Hives Verified 12/16/21 16:57 Physical Examination - Vital Signs Vital Signs: Vital Signs Temp Pulse Resp BP Pulse Ox 12/17/21 15:21 94 L 12/17/21 11:15 85 18 129/74 97 12/17/21 08:41 97.9 F 83 18 155/77 96 12/17/21 08:00 83 12/17/21 04:00 97.9 F 80 16 150/78 93 L 12/17/21 02:00 81 16 12/17/21 00:00 81 16 139/73 95 12/16/21 20:45 97.9 F 90 18 140/100 96 12/16/21 20:00 90 18 12/16/21 16:00 97.8 F 92 18 138/67 95 Intake and Output 12/17/21 12/17/21 12/17/21 06:59 14:59 22:59 Intake Total 62.667 216.969 Balance 62.667 216.969 Intake: IV 100 Intake, IV Titration 62.667 116.969 Amount Heparin Sod,Pork in 0.45% 62.667 116.969 NaCl 25,000 unit In 0.45 % NaCl 1 250ml.bag @ 11.6 UNITS/KG/HR 9.997 mls/hr IV .Q24H [facility] Rx#: [id number] Other: Voiding Method Toilet # Voids 1 1 Weight 86.1 kg Patient is an elderly female, in no acute distress. Patient is alert awake oriented to time place and person. Speech and language functions are normal. Attention, concentration and fund of knowledge is adequate. Patient can name and repeat very well. No aphasia or dysarthria. On cranial nerve examination, pupils are equal, round and reacting to light, visual duncan are full on confrontation, with no neglect on double simultaneous stimulation. Her extraocular muscles are intact with no nystagmus. Face is symmetric, tongue protrudes to the midline. Palatal elevation and sensation normal, hearing and shoulder shrug normal, facial sensation normal. Shoulder shrug normal. On muscle strength testing, there is no pronator drift and the strength is normal in arms and legs distally and proximally. Right leg was only checked at the ankle which is normal. Proximally not checked because of recent catheterization. Deep tendon reflexes are 1+ to 2, symmetric and plantars downgoing. Sensory to touch is equal with no neglect on double simultaneous stimulation. Cerebellar function showed no ataxia for khhayw-bs-awpu testing. No dysdiadochokinesia. Tone and bulk of muscles normal. Gait not checked. On general examination, there is no carotid bruit or murmur, S1-S2 audible. Abdomen is soft nontender. No organomegaly, bowel sounds present. Chest is clear. Peripheral pulses are present. No edema. Results - Laboratory Findings CBC and BMP: 12/18/21 05:40 12/18/21 05:40 Abnormal Lab Findings: Abnormal Labs 12/16/21 12/16/21 12/16/21 16:43 18:33 20:20 APTT Sodium 136 L Glucose 175 H POC Glucose (mg/dL) 183 H 208 H Hemoglobin A1c Total Protein 6.2 L Triglycerides LDL Cholesterol, Calc VLDL Cholesterol, Calc HDL Cholesterol Urine Protein Urine Glucose (UA) Urine Ketones 12/17/21 12/17/21 12/17/21 06:18 07:29 07:29 APTT 34.8 H Sodium Glucose 185 H POC Glucose (mg/dL) 194 H Hemoglobin A1c Total Protein 5.9 L Triglycerides LDL Cholesterol, Calc VLDL Cholesterol, Calc HDL Cholesterol Urine Protein Urine Glucose (UA) Urine Ketones 12/17/21 12/17/21 12/17/21 07:29 07:29 08:16 APTT Sodium Glucose POC Glucose (mg/dL) Hemoglobin A1c 9.7 H Total Protein Triglycerides 393.00 H LDL Cholesterol, Calc -2.2 L VLDL Cholesterol, Calc 78.60 H HDL Cholesterol 27.60 L Urine Protein Trace H Urine Glucose (UA) 4+ H Urine Ketones Trace H 12/17/21 12/17/21 11:45 14:41 APTT Sodium Glucose POC Glucose (mg/dL) 258 H 172 H Hemoglobin A1c Total Protein Triglycerides LDL Cholesterol, Calc VLDL Cholesterol, Calc HDL Cholesterol Urine Protein Urine Glucose (UA) Urine Ketones Assessment and Plan Assessment: * Very brief episode of expressive aphasia lasting for 1-2 minutes and then completely resolved. Episode could also be physiologic as patient apparently had just woken up from sleep and also has received fentanyl and Versed earlier during the procedure, which may have resulted in more deeper sleep, therefore difficulty with expressing briefly before getting fully alerted. At present patient's symptoms have resolved, and I stroke scale is 0. All symptoms resolved. * Acute non-STEMI, status post cardiac authorization, and cardiac stenting 2. * Diabetes type 2 * Hypertension * Hyperlipidemia Plan: * Patient's symptoms have completely resolved and her examination is normal. * CTA of head and neck revealed no evidence of dissection of the cervical internal carotid arteries or vertebral arteries or any evidence of significant stenosis at the carotid bifurcation. No evidence of high-grade stenosis or intracranial aneurysm. * Lipid panel with cholesterol 104, LDL ?-2.2, HDL 27 and triglycerides 393. Continue Lipitor. * Hemoglobin A1c 9.7. Optimize control of diabetes to target A1c <7.0 * 2-D echo with bubble study to rule out PFO. * Continue close neuro checks. * Continue Brilinta 90 mg twice a day and aspirin. * Consider two-week event monitoring post discharge to rule out PAF. * Neurology will follow. Discussed with patient's family and patient's nurse. * DVT prophylaxis: Patient on SCDs. * Thank you for the consult. Time with Patient: Greater than 30
[2021-12-18] MEDS: MUPIROCIN 2% OINT 22 GM TUBE NASAL SCH ×2 (10:04→20:39)
[2021-12-18] MEDS: ASPIRIN 325 MG TAB PO SCH (10:05)
[2021-12-18] MEDS: SODIUM CHLORIDE 0.9% 1,000 ML in EMPTY BAG 1 BAG IV SCH ×2 (10:05→21:43)
[2021-12-18] MEDS: TICAGRELOR 90 MG TAB PO SCH ×2 (10:05→20:38)
[2021-12-18] MEDS: CHOLECALCIFEROL 25 MCG (1000 IU) TABLET PO SCH (10:05)
--- NOTE | 2021-12-18 10:09 | P.PN ---
Subjective Progress Note Date: 12/18/21 This is a 66-year-old female who was admitted to [facility] with unstable angina. Patient had a cardiac catheterization and was found to have two-vessel disease including proximal LAD and OM branch of the circumflex. Patient was felt to be up for candidate for surgery. She underwent stent placement the LAD and the circumflex with Impella. After coming to ICU. Patient had a transient episode of expressive aphasia. Patient was seen by neurology and had a computed tomography scan and brain scan which were negative. Patient had a brief episode of chest pain last night requiring 2 nitroglycerin. Since then patient has been feeling well. At the time of examination patient is comfortable. Patient's echocardiogram showed hypokinesis of the inferolateral wall with an ejection fraction about 40-45%. There is also moderate mitral regurgitation which was similar to the echo done at [facility]. Lungs are clear. Heart is regular. We'll continue current medical therapy. I will add lisinopril 5 mg. Increase activity. Patient could be more to telemetry unit tomorrow. Her groin is soft without any hematoma Objective - Vital Signs Vital signs: Vital Signs Temp 97.9 F 12/18/21 08:00 Pulse 73 12/18/21 10:00 Resp 20 12/18/21 10:00 BP 134/67 12/18/21 10:00 Pulse Ox 91 L 12/18/21 10:00 FiO2 Intake & Output 12/17/21 12/18/21 12/18/21 18:59 06:59 18:59 Intake Total 565.052 6443 572 Output Total 1100 1200 0 Balance -658.031 21 572 Weight 86.1 kg Intake: IV 325 1021 172 0.9 NACL 225 75 Sodium Chloride 0.9% 1, 946 172 000 ml In Empty Bag 1 bag @ 1 ML/KG/HR 86.1 mls/hr IV .[id number] [facility] Rx#: [id number] Intake, IV Titration 116.969 Amount Heparin Sod,Pork in 0.45% 116.969 NaCl 25,000 unit In 0.45 % NaCl 1 250ml.bag @ 11.6 UNITS/KG/HR 9.997 mls/hr IV .Q24H [facility] Rx#: [id number] Oral 200 400 Output: Urine 1100 1200 0 Other: Voiding Method Toilet # Voids 1 0 1 - Exam GENERAL EXAM: Patient is alert and oriented and doesn't appear to be in any acute distress HEENT: Normocephalic. Normal reaction of pupils, equal size, normal range of extraocular motion. No erythema or exudates in the throat. NECK: No masses, no nuchal rigidity. CHEST: No chest wall deformity. LUNGS: Equal air entry with no crackles or wheeze. HEART: S1 and S2 normal with no audible mumurs or gallops. Regular rhythm, femorals equal on both sides.. ABDOMEN: No hepatosplenomegaly, normal bowel sounds, no guarding or rigidity. SKIN: No rashes CENTRAL NERVOUS SYSTEM: No focal deficits. EXTREMITIES: No hematoma in the right groin. Mild ecchymosis - Labs CBC & Chem 7: 12/18/21 05:40 12/18/21 05:40 Labs: Abnormal Lab Results - Last 24 Hours (Table) 12/17/21 12/17/21 12/17/21 Range/Units 07:29 07:29 08:16 RBC (3.80-5.40) m/uL Hgb (11.4-16.0) gm/dL Hct (34.0-46.0) % APTT (22.0-30.0) sec BUN (7-17) mg/dL Glucose (74-99) mg/dL POC Glucose (mg/dL) (75-99) mg/dL Hemoglobin A1c 9.7 H (0.0-6.0) % Triglycerides 393.00 H (0.00-149.00) mg/dL LDL Cholesterol, Calc -2.2 L (0.0-131.0) mg/dL VLDL Cholesterol, Calc 78.60 H (5.00-40.00) mg/dL HDL Cholesterol 27.60 L (40.00-60.00) mg/dL Urine Protein Trace H (Negative) Urine Glucose (UA) 4+ H (Negative) Urine Ketones Trace H (Negative) 12/17/21 12/17/21 12/17/21 Range/Units 11:45 14:41 15:20 RBC (3.80-5.40) m/uL Hgb (11.4-16.0) gm/dL Hct (34.0-46.0) % APTT 89.9 H (22.0-30.0) sec BUN (7-17) mg/dL Glucose (74-99) mg/dL POC Glucose (mg/dL) 258 H 172 H (75-99) mg/dL Hemoglobin A1c (0.0-6.0) % Triglycerides (0.00-149.00) mg/dL LDL Cholesterol, Calc (0.0-131.0) mg/dL VLDL Cholesterol, Calc (5.00-40.00) mg/dL HDL Cholesterol (40.00-60.00) mg/dL Urine Protein (Negative) Urine Glucose (UA) (Negative) Urine Ketones (Negative) 12/17/21 12/17/21 12/17/21 Range/Units 15:59 17:26 20:19 RBC (3.80-5.40) m/uL Hgb (11.4-16.0) gm/dL Hct (34.0-46.0) % APTT 57.7 H (22.0-30.0) sec BUN (7-17) mg/dL Glucose (74-99) mg/dL POC Glucose (mg/dL) 144 H 168 H (75-99) mg/dL Hemoglobin A1c (0.0-6.0) % Triglycerides (0.00-149.00) mg/dL LDL Cholesterol, Calc (0.0-131.0) mg/dL VLDL Cholesterol, Calc (5.00-40.00) mg/dL HDL Cholesterol (40.00-60.00) mg/dL Urine Protein (Negative) Urine Glucose (UA) (Negative) Urine Ketones (Negative) 12/18/21 12/18/21 12/18/21 Range/Units 05:40 05:40 06:41 RBC 3.63 L (3.80-5.40) m/uL Hgb 11.1 L (11.4-16.0) gm/dL Hct 32.8 L (34.0-46.0) % APTT (22.0-30.0) sec BUN 6 L (7-17) mg/dL Glucose 157 H (74-99) mg/dL POC Glucose (mg/dL) 181 H (75-99) mg/dL Hemoglobin A1c (0.0-6.0) % Triglycerides (0.00-149.00) mg/dL LDL Cholesterol, Calc (0.0-131.0) mg/dL VLDL Cholesterol, Calc (5.00-40.00) mg/dL HDL Cholesterol (40.00-60.00) mg/dL Urine Protein (Negative) Urine Glucose (UA) (Negative) Urine Ketones (Negative) Microbiology - Last 24 Hours (Table) 12/17/21 10:45 Nasal Screen MRSA/MSSA - Preliminary Nasal Swab Assessment and Plan (1) History of coronary artery stent placement Current Visit: Yes Status: Acute Code(s): Z95.5 - PRESENCE OF CORONARY ANGIOPLASTY IMPLANT AND GRAFT SNOMED Code(s): 775133305 (2) NSTEMI (non-ST elevated myocardial infarction) Current Visit: Yes Status: Acute Code(s): I21.4 - NON-ST ELEVATION (NSTEMI) MYOCARDIAL INFARCTION SNOMED Code(s): 93491361 (3) TIA (transient ischemic attack) Current Visit: Yes Status: Acute Code(s): G45.9 - TRANSIENT CEREBRAL ISCHEMIC ATTACK, UNSPECIFIED SNOMED Code(s): 365108504 (4) Essential hypertension Current Visit: Yes Status: Acute Code(s): I10 - ESSENTIAL (PRIMARY) HYPERTENSION SNOMED Code(s): 21519663 Plan: Continue current medical therapy . Add lisinopril 5 mg. Increase activity. Possible transfer to telemetry unit tomorrow
[2021-12-18 11:29] LABS: Glucose,Whole Blood 194 mg/dL (75-99)
[2021-12-18] MEDS: lisinopriL 5 MG TAB PO SCH (11:58)
--- NOTE | 2021-12-18 12:45 | XR ---
EXAMINATION TYPE: XR chest 1V portable DATE OF EXAM: 12/18/2021 12:38 PM COMPARISON: Chest radiographs from 421 TECHNIQUE: XR chest 1V portable Portable AP radiograph of the chest.. CLINICAL INDICATION:Female, 66 years old with history of chf; FINDINGS: Lungs/Pleura: There is no evidence of pleural effusion, focal consolidation, or pneumothorax. Pulmonary vascularity: Unremarkable. Heart/mediastinum: Cardiomediastinal silhouette is enlarged and stable. Musculoskeletal: No acute osseous pathology. IMPRESSION: No acute cardiopulmonary disease/process.
--- NOTE | 2021-12-18 12:51 | PN ---
PROGRESS NOTE DATE OF SERVICE: 12/18/2021 This 66-year-old woman who was admitted with acute ST-segment myocardial infarction had cardiac stents. The patient also had a brief episode of change in mental status, possibly medication-induced. The patient underwent stenting of the first obtuse marginal branch of the left circumflex as well as the proximal LAD. The patient was complaining of some chest pain, which was treated symptomatically overnight. Patient is being monitored in ICU. Past medical history reviewed. REVIEW OF SYSTEMS: Fourteen-point review of systems negative except as mentioned earlier. CURRENT MEDICATIONS: Reviewed. They include Lipitor. Doses and the rest of the medications are reviewed. PHYSICAL EXAMINATION: The pulse is 74, blood pressure 120/80respiratory rate 16. HEENT: Conjunctivae normal. NECK: No jugular venous distention. CARDIOVASCULAR: S1, S2 muffled. RESPIRATION: A few scattered rhonchi and crackles. ABDOMEN: Soft, non-tender. LEGS: No edema. No swelling. NERVOUS SYSTEM: No focal deficit. LABS: Hemoglobin 11.1. Other labs are noted. X-rays reviewed personally. ASSESSMENT: 1. Iij-FN-jrkigjc-elevation myocardial infarction, status post cardiac catheterization and multivessel coronary artery disease and stenting. 2. Change in mental status; possible transient ischemic attack versus medication- induced. 3. Diabetes mellitus, type 2. 4. Hypertension. 5. Hyperlipidemia. RECOMMENDATIONS AND DISCUSSION: I recommend to continue current medications, continue with the monitoring, symptomatic treatment. See orders for details. Basic labs. Repeat labs. Closely follow with Cardiology, Cardiothoracic Surgery. The patient is on dual antiplatelet treatment. Further recommendations to follow. MMODL / IJN: [id number] / MTDD
[2021-12-18 16:25] LABS: Glucose,Whole Blood 194 mg/dL (75-99)
[2021-12-18 20:34] LABS: Glucose,Whole Blood 249 mg/dL (75-99)
[2021-12-18] MEDS: ESCITALOPRAM 10 MG TAB PO SCH (20:38)
[2021-12-18] MEDS: METOPROLOL SUCCINATE (ER) 100 MG TAB.ER.24H PO SCH (20:38)
[2021-12-18] MEDS: ATORVASTATIN 80 MG TAB PO SCH (20:38)
[2021-12-18] MEDS: ASCORBIC ACID 500 MG TAB PO SCH (20:38)
[2021-12-18] MEDS: ALPRAZolam 0.5 MG TAB PO PRN (21:43)
[2021-12-19 06:42] LABS: Glucose,Whole Blood 219 mg/dL (75-99)
[2021-12-19] MEDS: INSULIN ASPART (NovoLOG) 100 UNIT/ML VIAL SQ SCH ×4 (06:45→21:03)
[2021-12-19] MEDS: PANTOPRAZOLE 40 MG TABLET PO SCH (06:45)
[2021-12-19 06:59] LABS: African American GFR (CKD) >90 (>60 ml/min/1.73 sqM); Anion Gap 3 mmol/L; Blood Urea Nitrogen 7 mg/dL (7-17); Calcium 8.7 mg/dL (8.4-10.2); Carbon Dioxide 27 mmol/L (22-30); Chloride 105 mmol/L (98-107); Glucose 193 mg/dL (74-99); Non-African American GFR(CKD) >90 (>60 ml/min/1.73 sqM); Potassium 3.8 mmol/L (3.5-5.1); Sodium 135 mmol/L (137-145)
[2021-12-19 07:04] LABS: Basophils % (A) 1 %; Eosinophils # (A) 0.1 k/uL (0-0.7); Eosinophils % (A) 2 %; HCT 33.4 % (34.0-46.0); HGB 11.2 gm/dL (11.4-16.0); Lymphocytes % (A) 21 %; MCH 30.2 pg (25.0-35.0); MCHC 33.4 g/dL (31.0-37.0); MCV 90.5 fL (80.0-100.0); Mean Platelet Volume 7.2; Monocytes # (A) 0.4 k/uL (0-1.0); Monocytes % (A) 9 %; Neutrophils # (A) 3.3 k/uL (1.3-7.7); Neutrophils % (A) 65 %; Platelet Count 197 k/uL (150-450); RBC 3.69 m/uL (3.80-5.40); RDW 12.7 % (11.5-15.5)
[2021-12-19] MEDS ORDERED: POTASSIUM CHLORIDE ER 20 MEQ TAB.ER PO STA (07:33)
[2021-12-19] MEDS: TICAGRELOR 90 MG TAB PO SCH ×2 (08:53→21:02)
[2021-12-19] MEDS: SODIUM CHLORIDE 0.9% 1,000 ML in EMPTY BAG 1 BAG IV SCH (08:53)
[2021-12-19] MEDS: CHOLECALCIFEROL 25 MCG (1000 IU) TABLET PO SCH (08:53)
[2021-12-19] MEDS: ASPIRIN 325 MG TAB PO SCH (08:53)
[2021-12-19] MEDS: MUPIROCIN 2% OINT 22 GM TUBE NASAL SCH ×2 (08:53→21:02)
[2021-12-19] MEDS: lisinopriL 5 MG TAB PO SCH (08:53)
--- NOTE | 2021-12-19 11:20 | CA ---
Transthoracic Echo Report Name: Keisha Jones Age: 66 Gender: F : 1955 Exam Date: 12/18/2021 07:49 Exam Location: [facility] Ht (in): 64 Wt (lb): 189 Ordering Physician: Mark Soto MD Attending/Referring Phys: Speech Language Pathology Assistant Faiza Mendoza, DASHA Procedure CPT: Indications: tia Cardiac Hx: Technical Quality: Good Contrast 1: Total Dose (mL): Contrast 2: Total Dose (mL): MEASUREMENTS (Male / Female) Normal Values 2D ECHO LV Diastolic Diameter PLAX 5.3 cm 4.2 - 5.9 / 3.9 - 5.3 cm LV Systolic Diameter PLAX 4.5 cm IVS Diastolic Thickness 1.2 cm 0.6 - 1.0 / 0.6 - 0.9 cm LVPW Diastolic Thickness 1.7 cm 0.6 - 1.0 / 0.6 - 0.9 cm LV Relative Wall Thickness 0.6 RV Internal Dim ED PLAX 3.4 cm LA Systolic Diameter LX 4.1 cm 3.0 - 4.0 / 2.7 - 3.8 cm LA Volume 47.3 cm??? 18 - 58 / 22 - 52 cm??? M-MODE Aortic Root Diameter MM 3.5 cm LA Systolic Diameter MM 4.4 cm LA Ao Ratio MM 1.3 MV E Point Septal Separation 1.4 cm AV Cusp Separation MM 1.8 cm DOPPLER MV Area PHT 3.5 cm??? Mitral E Point Velocity 77.2 cm/s Mitral A Point Velocity 94.3 cm/s Mitral E to A Ratio 0.8 MV Deceleration Time 219.7 ms MV E' Velocity 4.2 cm/s Mitral E to MV E' Ratio 18.6 TR Peak Velocity 233.4 cm/s TR Peak Gradient 21.8 mmHg Right Ventricular Systolic Press 26.8 mmHg FINDINGS Left Ventricle Left ventricular ejection fraction is estimated at 40-45%. Inferiorlateral hypokinesis Right Ventricle Moderate right ventricular dilatation. Right ventricular systolic pressure within normal limits. Right Atrium Normal right atrial size. Left Atrium Moderate left atrial dilatation. BUBBLE STUDY PERFORMED NO CROSSING NOTED. Mitral Valve Structurally normal mitral valve. Moderate mitral regurgitation. Aortic Valve Trileaflet aortic valve. Tricuspid Valve Structurally normal tricuspid valve. Mild tricuspid regurgitation. Pulmonic Valve Structurally normal pulmonic valve. Pericardium Echo free space anterior to the right ventricle likely represents a fat pad. Aorta Normal size aortic root and proximal ascending aorta. CONCLUSIONS #1. Normal left ventricular size. #2. Hypokinesis of the inferolateral wall of mild degree with an ejection fraction of 45%. #3. Moderate right ventricular dilation #4. Negative bubble study Previewed by: Dr. Ekaterina Steen MD (Electronically Signed) Final Date: 19 December 2021 11:19
[2021-12-19 11:42] LABS: Glucose,Whole Blood 244 mg/dL (75-99)
--- NOTE | 2021-12-19 12:08 | P.PN ---
Subjective Progress Note Date: 12/19/21 This is a 66-year-old female who was admitted to [facility] with unstable angina. Patient had a cardiac catheterization and was found to have two-vessel disease including proximal LAD and OM branch of the circumflex. Patient was felt to be up for candidate for surgery. She underwent stent placement the LAD and the circumflex with Impella. After coming to ICU. Patient had a transient episode of expressive aphasia. Patient was seen by neurology and had a computed tomography scan and brain scan which were negative. Patient had a brief episode of chest pain last night requiring 2 nitroglycerin. Since then patient has been feeling well. At the time of examination patient is comfortable. Patient's echocardiogram showed hypokinesis of the inferolateral wall with an ejection fraction about 40-45%. There is also moderate mitral regurgitation which was similar to the echo done at [facility]. Lungs are clear. Heart is regular. We'll continue current medical therapy. I will add lisinopril 5 mg. Increase activity. Patient could be more to telemetry unit tomorrow. Her groin is soft without any hematoma. 12/19/2021: This patient had stent placement of the oxygen LAD and one branch of the circumflex. Patient had a transient difficulty with speech but so far has been stable. No complaints of chest pain or shortness of breath. Lungs are clear. Heart is regular. Chest x-ray is clear. Patient will remote telemetry unit in any activity to be increased. If stable, patient could be discharged home within next 24 hours. Objective - Vital Signs Vital signs: Vital Signs Temp 97.8 F 12/19/21 08:00 Pulse 90 12/19/21 10:00 Resp 19 12/19/21 10:00 BP 148/88 12/19/21 10:00 Pulse Ox 95 12/19/21 10:00 FiO2 Intake & Output 12/18/21 12/19/21 12/19/21 18:59 06:59 18:59 Intake Total 1372 0 Output Total 0 1900 Balance 1372 -1900 0 Weight 73.1 kg Intake: IV 172 0 0.9 NACL 0 Sodium Chloride 0.9% 1, 172 000 ml In Empty Bag 1 bag @ 1 ML/KG/HR 86.1 mls/hr IV .[id number] [facility] Rx#: [id number] Oral 1200 Output: Urine 0 1900 Other: Voiding Method Toilet Toilet Toilet # Voids 1 1 1 - Exam GENERAL EXAM: Patient is alert and oriented and doesn't appear to be in any acute distress HEENT: Normocephalic. Normal reaction of pupils, equal size, normal range of extraocular motion. No erythema or exudates in the throat. NECK: No masses, no nuchal rigidity. CHEST: No chest wall deformity. LUNGS: Equal air entry with no crackles or wheeze. HEART: S1 and S2 normal with no audible mumurs or gallops. Regular rhythm, femorals equal on both sides.. ABDOMEN: No hepatosplenomegaly, normal bowel sounds, no guarding or rigidity. SKIN: No rashes CENTRAL NERVOUS SYSTEM: No focal deficits. EXTREMITIES: No hematoma in the right groin. Mild ecchymosis - Labs CBC & Chem 7: 12/19/21 05:55 12/19/21 05:55 Labs: Abnormal Lab Results - Last 24 Hours (Table) 12/18/21 12/18/21 12/19/21 Range/Units 16:23 20:32 05:55 RBC 3.69 L (3.80-5.40) m/uL Hgb 11.2 L (11.4-16.0) gm/dL Hct 33.4 L (34.0-46.0) % Sodium (137-145) mmol/L Glucose (74-99) mg/dL POC Glucose (mg/dL) 194 H 249 H (75-99) mg/dL 12/19/21 12/19/21 12/19/21 Range/Units 05:55 06:40 11:41 RBC (3.80-5.40) m/uL Hgb (11.4-16.0) gm/dL Hct (34.0-46.0) % Sodium 135 L (137-145) mmol/L Glucose 193 H (74-99) mg/dL POC Glucose (mg/dL) 219 H 244 H (75-99) mg/dL Microbiology - Last 24 Hours (Table) 12/17/21 10:45 Nasal Screen MRSA/MSSA - Final Nasal Swab Assessment and Plan (1) History of coronary artery stent placement Current Visit: Yes Status: Acute Code(s): Z95.5 - PRESENCE OF CORONARY ANGIOPLASTY IMPLANT AND GRAFT SNOMED Code(s): 854628558 (2) NSTEMI (non-ST elevated myocardial infarction) Current Visit: Yes Status: Acute Code(s): I21.4 - NON-ST ELEVATION (NSTEMI) MYOCARDIAL INFARCTION SNOMED Code(s): 12644879 (3) TIA (transient ischemic attack) Current Visit: Yes Status: Acute Code(s): G45.9 - TRANSIENT CEREBRAL ISCHEMIC ATTACK, UNSPECIFIED SNOMED Code(s): 564223617 (4) Essential hypertension Current Visit: Yes Status: Acute Code(s): I10 - ESSENTIAL (PRIMARY) HYPERTENSION SNOMED Code(s): 75748943 Plan: Patient is clinically stable. Lungs are clear. Heart is regular. No JVD or peripheral edema. Patient is being moved to telemetry unit. Increase activity as tolerated
--- NOTE | 2021-12-19 13:14 | PN ---
PROGRESS NOTE DATE OF SERVICE: 12/19/2021 This 66-year-old woman who was admitted with acute jqh-SI-lwtldty-elevation myocardial infarction had cardiac catheterization and stenting also. Patient had some chest pains yesterday. The most recent chest x-ray which was done and reviewed personally by me showed no acute abnormality. Cardiology is following the patient closely. The patient is on dual antiplatelet medications. Blood sugars are slightly elevated. Past medical history reviewed. REVIEW OF SYSTEMS: Fourteen-point review of systems negative except as mentioned earlier. MEDICATIONS: Reviewed. They include aspirin. Rest of the medications and doses are reviewed. PHYSICAL EXAMINATION: Pulse is 89, blood pressure ntd, respiration 20. HEENT: Conjunctivae normal. NECK: No jugular venous distention. CARDIOVASCULAR: S1, S2 muffled. RESPIRATION: Breath sounds diminished at the bases. A few scattered rhonchi. No crackles. ABDOMEN: Soft. LEGS: No edema. No swelling. NERVOUS SYSTEM: No focal deficit. LABS: WBC 5, hemoglobin 11.2, glucose 219 and 244. ASSESSMENT: 1. Acute ukz-FG-dxmerya-elevation myocardial infarction, status post cardiac catheterization, multivessel coronary artery disease and stenting. 2. Change in mental status, possible acute transient ischemic attack versus medication- induced. 3. Diabetes mellitus, type 2. 4. Hypertension. 5. Hyperlipidemia. RECOMMENDATIONS AND DISCUSSION: I recommend to continue current medications, continue with the monitoring, symptomatic treatment. Continue with dual antiplatelet medications. As far as the diabetes is concerned, I recommend scale coverage currently. Obtain hemoglobin A1c. Continue to follow. The patient is on metformin at home, which could be restarted at the time of discharge. MMODL / IJN: [id number] / MTDD
[2021-12-19 16:23] LABS: Glucose,Whole Blood 221 mg/dL (75-99)
[2021-12-19 20:27] LABS: Glucose,Whole Blood 250 mg/dL (75-99)
[2021-12-19] MEDS: ATORVASTATIN 80 MG TAB PO SCH (21:02)
[2021-12-19] MEDS: METOPROLOL SUCCINATE (ER) 100 MG TAB.ER.24H PO SCH (21:02)
[2021-12-19] MEDS: ASCORBIC ACID 500 MG TAB PO SCH (21:02)
[2021-12-19] MEDS: ESCITALOPRAM 10 MG TAB PO SCH (21:02)
[2021-12-19] MEDS: ALPRAZolam 0.5 MG TAB PO PRN (21:19)
[2021-12-20] MEDS: SODIUM CHLORIDE 0.9% 1,000 ML in EMPTY BAG 1 BAG IV SCH ×2 (00:09→08:49)
[2021-12-20 06:10] LABS: Glucose,Whole Blood 232 mg/dL (75-99)
[2021-12-20] MEDS: INSULIN ASPART (NovoLOG) 100 UNIT/ML VIAL SQ SCH ×2 (06:31→12:13)
[2021-12-20] MEDS: PANTOPRAZOLE 40 MG TABLET PO SCH (06:31)
--- NOTE | 2021-12-20 07:12 | P.PN ---
Subjective Progress Note Date: 12/19/21 Patient was seen for a follow-up. Patient's family members were also present. Patient is feeling perfectly fine. No further focal symptoms. Vision is fine. No headache. No dizziness. Denies any speech issues. Objective - Vital Signs Vital signs: Vital Signs Temp 98 F 12/19/21 12:00 Pulse 93 12/19/21 14:00 Resp 18 12/19/21 14:00 BP 144/78 12/19/21 14:00 Pulse Ox 97 12/19/21 14:00 FiO2 Intake & Output 12/18/21 12/19/21 12/19/21 18:59 06:59 18:59 Intake Total 1372 0 Output Total 0 1900 Balance 1372 -1900 0 Weight 73.1 kg Intake: IV 172 0 0.9 NACL 0 Sodium Chloride 0.9% 1, 172 000 ml In Empty Bag 1 bag @ 1 ML/KG/HR 86.1 mls/hr IV .[id number] [facility] Rx#: [id number] Oral 1200 Output: Urine 0 1900 Other: Voiding Method Toilet Toilet Toilet # Voids 1 1 1 - Exam Patient's mental status, speech and language functions are normal. Cranial nerves are all normal. Visual duncan are full, face is symmetric. And tongue protrudes the midline. Muscle strength is normal in the arms and legs. No ataxia. Sensations are equal. Gait deferred. - Labs CBC & Chem 7: 12/19/21 05:55 12/19/21 05:55 Labs: Abnormal Lab Results - Last 24 Hours (Table) 12/18/21 12/18/21 12/19/21 Range/Units 16:23 20:32 05:55 RBC 3.69 L (3.80-5.40) m/uL Hgb 11.2 L (11.4-16.0) gm/dL Hct 33.4 L (34.0-46.0) % Sodium (137-145) mmol/L Glucose (74-99) mg/dL POC Glucose (mg/dL) 194 H 249 H (75-99) mg/dL 12/19/21 12/19/21 12/19/21 Range/Units 05:55 06:40 11:41 RBC (3.80-5.40) m/uL Hgb (11.4-16.0) gm/dL Hct (34.0-46.0) % Sodium 135 L (137-145) mmol/L Glucose 193 H (74-99) mg/dL POC Glucose (mg/dL) 219 H 244 H (75-99) mg/dL Microbiology - Last 24 Hours (Table) 12/17/21 10:45 Nasal Screen MRSA/MSSA - Final Nasal Swab Assessment and Plan Assessment: * Very brief episode of expressive aphasia lasting for 1-2 minutes and then completely resolved. Rule out TIA. Episode could also be physiologic as patient apparently had just woken up from sleep and also has received fentanyl and Versed earlier during the procedure, which may have resulted in more deeper sleep, therefore difficulty with expressing briefly before getting fully alerted. At present patient's symptoms have resolved, and I stroke scale is 0. All symptoms resolved. * Acute non-STEMI, status post cardiac authorization, and cardiac stenting 2. * Diabetes type 2 * Hypertension * Hyperlipidemia Plan: * Patient's symptoms have completely resolved and her examination is normal. * CTA of head and neck revealed no evidence of dissection of the cervical internal carotid arteries or vertebral arteries or any evidence of significant stenosis at the carotid bifurcation. No evidence of high-grade stenosis or intracranial aneurysm. * Lipid panel with cholesterol 104, LDL ?-2.2, HDL 27 and triglycerides 393. Continue Lipitor. * Hemoglobin A1c 9.7. Optimize control of diabetes to target A1c <7.0 * 2-D echo revealed normal left-ventricular size. Hypokinesis of the inferior lateral wall of mild degree with an EF of 45%. Moderate right ventricular di lation. Negative bubble study. * Continue Brilinta 90 mg twice a day and aspirin. * Consider two-week event monitoring post discharge to rule out PAF. * DVT prophylaxis: Patient on SCDs. * No other neurological workup indicated. Neurology will sign off. Please reconsult neurology if any concerns.
[2021-12-20 08:16] LABS: African American GFR (CKD) >90 (>60 ml/min/1.73 sqM); Anion Gap 5 mmol/L; Blood Urea Nitrogen 8 mg/dL (7-17); Calcium 9.1 mg/dL (8.4-10.2); Carbon Dioxide 26 mmol/L (22-30); Chloride 106 mmol/L (98-107); Glucose 213 mg/dL (74-99); Non-African American GFR(CKD) >90 (>60 ml/min/1.73 sqM); Potassium 3.9 mmol/L (3.5-5.1); Sodium 137 mmol/L (137-145)
[2021-12-20 08:28] LABS: Basophils % (A) 0 %; Eosinophils # (A) 0.1 k/uL (0-0.7); Eosinophils % (A) 2 %; HCT 34.1 % (34.0-46.0); HGB 11.7 gm/dL (11.4-16.0); Lymphocytes # (A) 0.9 k/uL (1.0-4.8); Lymphocytes % (A) 18 %; MCHC 34.3 g/dL (31.0-37.0); MCV 90.5 fL (80.0-100.0); Monocytes # (A) 0.3 k/uL (0-1.0); Monocytes % (A) 7 %; Neutrophils # (A) 3.6 k/uL (1.3-7.7); Neutrophils % (A) 71 %; Platelet Count 242 k/uL (150-450); RBC 3.77 m/uL (3.80-5.40); RDW 13.4 % (11.5-15.5)
[2021-12-20 08:47] VITALS: TEMP 97.4
[2021-12-20] MEDS: ASPIRIN 325 MG TAB PO SCH (08:50)
[2021-12-20] MEDS: TICAGRELOR 90 MG TAB PO SCH (08:50)
[2021-12-20] MEDS: CHOLECALCIFEROL 25 MCG (1000 IU) TABLET PO SCH (08:50)
[2021-12-20] MEDS: lisinopriL 5 MG TAB PO SCH (08:50)
[2021-12-20] MEDS: MUPIROCIN 2% OINT 22 GM TUBE NASAL SCH (08:50)
--- NOTE | 2021-12-20 11:24 | CDI ---
Documentation Clarification Form Date: 12/20/2021 11:04:22 AM From: Radha Miller RN CCDS Admit Date: 12/16/2021 03:38:00 PM Patient Name: Keisha Jones Visit Number: [id number] Discharge Date: ATTENTION: The Clinical Documentation Specialists (CDI) and [facility] Coding Staff appreciate your assistance in clarifying documentation. Please respond to the clarification below the line at the bottom and electronically sign. The CDI & [facility] Coding staff will review the response and follow-up if needed. Please note: Queries are made part of the Legal Health Record. If you have any questions, please contact the author of this message via ITS. Dr. Jacky Hoyt: Your patient has the documented symptom of Change in Mental Status 12/17 12/19, H&P Medicine progress notes. Additional clarification regarding the etiology/cause of this symptom is requested. History/Risk Factors: 66- year-old female presents to the ED from [facility] for features of Acute dbl-LK-avtswcq-elevation myocardial infarction. Medical History: DM, HTN and HLD. Clinical Indicators: 12/17 12/19, H&P and Medicine progress notes: The patient underwent stent and impella, had a brief period of aphasia. Seen by Neurology. Dr Soto: Medications vs tia. 12/17 Neurology consult: Very brief episode of expressive aphasia lasting for 1-2 minutes and then completely resolved. Episode could also be physiologic as patient apparently had just woken up from sleep and also has received Fentanyl and Versed earlier during the procedure, which may have resulted in a more deeper sleep, therefore difficulty with expressing briefly before getting fully altered. CT Brain no contrast: 12/17 No acute intracranial hemorrhage or midline shift. Treatment: 12/[address]; 12/17 Neurology consult; 12/17 Neurology consult Please clarify the etiology of the symptom of Altered Mental Status: [ X ] Metabolic Encephalopathy due to medication. [ ] Other condition (please specify) [ ] Unable to determine (Template Last Revised: August 2020) MTDD
--- NOTE | 2021-12-20 11:26 | P.PN ---
Subjective This is a 66-year-old female with a past medical history of type 2 diabetes, hypertension, dyslipidemia, obesity, breast cancer with left lobectomy and radiation treatments May 2021, family history of early onset coronary disease. Patient was transferred from [facility]. She initially presented to the hospital chest pain and mild troponin elevation. Cardiac cath revealed total occlusion of LAD and significant stenosis in the diagonal and also obtuse marginal, dominant RCA, no critical lesions. The patient was transferred to [facility]. Dr. Buckner evaluated the patient and felt that she is better off with percutaneous intervention. On 12/17/2021 patient underwent successful stenting of the first obtuse marginal branch of the left circumflex, and proximal LAD. Impella was placed. Patient initially was transferred to ICU. After coming to ICU. Patient had a transient episode of expressive aphasia and resolved. Patient was seen by neurology and had a computed tomography scan and brain scan which were negative. She was then transferred to on 12/19. Echocardiogram revealed an EF of 4045%, negative bubble study, hypokinesis of the inferior wall mild to, moderate right ventricular dilation 12/20/2021 Patient seen and examined at bedside, no acute distress. She denies any chest pain or shortness of breath. She denies any other episodes of aphasia, speech difficulties or focal weakness/numbness. Denies any chest pain shortness of breath. Patient is maintaining sinus mechanism on the monitor. She's currently maintained on dual antiplatelet therapy with aspirin and Brilinta. Her blood pressures have been SBP 150s-160s. GENERAL: Well-appearing, well-nourished and in no acute distress. NECK: Supple without JVD or thyromegaly. LUNGS: Breath sounds clear to auscultation bilaterally. Respiration equal and unlabored. No wheezes, rales or rhonchi. HEART: Regular rate and rhythm without murmurs, rubs or gallops. S1 and S2 heard. EXTREMITIES: Normal range of motion, no edema. No clubbing or cyanosis. Peripheral pulses intact. Right femoral site clean dry intact no hematoma ASSESSMENT NSTEMI Status post PCI first obtuse marginal branch of the left circumflex and proximal LAD with Impella in 12/17/2021 Very brief episode of expressive aphasia after procedure on 12/17/21, resolved, possibly related to cardiac cath procedure Type 2 diabetes Hypertension Dyslipidemia Obesity History of breast cancer status post left lumpectomy and radiation in May 2021 History of coronary artery disease PLAN From cardiology perspective, patient is discharged home. Continue dual antiplatelet therapy with aspirin and Brilinta for at least 12 months Continue statin Increase lisinopril 10 mg daily Continue metoprolol succinate 100 mg nightly Follow up outpatient with Dr. Poole in one week Nurse Practitioner note has been reviewed, I agree with a documented findings and plan of care. Patient was seen and examined. Objective - Vital Signs Vital signs: Vital Signs Temp 97.4 F L 12/20/21 08:43 Pulse 85 12/20/21 09:34 Resp 16 12/20/21 09:34 BP 151/75 12/20/21 08:43 Pulse Ox 96 12/20/21 08:43 FiO2 Intake & Output 12/19/21 12/20/21 12/20/21 18:59 06:59 18:59 Intake Total 355 Balance 355 Intake: IV 0 0.9 NACL 0 Oral 355 Other: Voiding Method Toilet Toilet Toilet # Voids 1 1 - Labs CBC & Chem 7: 12/20/21 07:24 12/20/21 07:24 Labs: Abnormal Lab Results - Last 24 Hours (Table) 12/19/21 12/19/21 12/19/21 Range/Units 11:41 16:22 20:25 RBC (3.80-5.40) m/uL Lymphocytes # (1.0-4.8) k/uL Glucose (74-99) mg/dL POC Glucose (mg/dL) 244 H 221 H 250 H (75-99) mg/dL Hemoglobin A1c (0.0-6.0) % 12/20/21 12/20/21 12/20/21 Range/Units 06:09 07:24 07:24 RBC 3.77 L (3.80-5.40) m/uL Lymphocytes # 0.9 L (1.0-4.8) k/uL Glucose (74-99) mg/dL POC Glucose (mg/dL) 232 H (75-99) mg/dL Hemoglobin A1c 9.7 H (0.0-6.0) % 12/20/21 Range/Units 07:24 RBC (3.80-5.40) m/uL Lymphocytes # (1.0-4.8) k/uL Glucose 213 H (74-99) mg/dL POC Glucose (mg/dL) (75-99) mg/dL Hemoglobin A1c (0.0-6.0) %
[2021-12-20 11:42] LABS: Glucose,Whole Blood 293 mg/dL (75-99)
[2021-12-20 12:10] VITALS: BP 137/73; PULSE 78; RESP 18
[2021-12-21] MEDS ORDERED: lisinopriL 10 MG TAB PO SCH (09:00)
[2021-12-21] MEDS ORDERED: ASPIRIN 81 MG PO SCH (09:00)
--- NOTE | 2021-12-21 15:52 | P.DS ---
Providers Date of admission: 12/16/21 15:38 Expected date of discharge: 12/20/21 Attending physician: Jacky Hoyt Consults: 12/16/21 20:09 Consult Physician Urgent Consulting Provider: Lai Lr Consult Reason/Comments: revascularization 2 vessel disease to LAD, cathed on 12/16 Do you want consulting provider notified?: Yes 12/16/21 20:10 Consult Physician Routine Consulting Provider: Garry Poole Consult Reason/Comments: recent cath at [facility]/ lad Do you want consulting provider notified?: Yes 12/17/21 14:08 Consult Physician Routine Consulting Provider: [facility] Consult Reason/Comments: Post Interventional patient Do you want consulting provider notified?: Already Contacted 12/17/21 15:43 Consult Physician Stat Consulting Provider: Mark Soto Consult Reason/Comments: r/o stroke Do you want consulting provider notified?: Yes Primary care physician: Jacky Hoyt [facility] Course: Final Diagnoses: Acute non-STEMI, status post PCI, stenting to the first OM of left circumflex and proximal LAD, placement of Impella Acute brief expressive aphasia, lasting for a couple minutes, post procedure 12/17/21, resolved,possible secondary to TIA, possibly medication induced-, secondary to fentanyl and Versed, possibly accumulation of , in a patient who has undergone multiple procedures with anesthesia over the last 10 months; patient diagnosed with breast cancer , underwent a lumpectomy in March 2021, followed by radiation- finishing just prior to 2020, or possibly secondary to cardiac catheterization procedure. Diabetes mellitus type 2, hyperglycemia, hemoglobin A1c 9.7, further diabetic education outpatient in clinic, patient to maintain log of Accu-Cheks before meals and at bedtime and take to follow-up visit with PCP for further recommendations. Hypertension Hyperlipidemia Obesity CAD, history of This is a pleasant 66-year-old female who initially presented to [facility] with chest pain, troponin elevation, diagnosed with acute NSTEMI, proceed with cardiac cath reporting multivessel disease, transferred to [facility]. Evaluated by both cardiology and cardiothoracic surgery with decision to proceed with cardiac catheterization with stenting. Patient underwent cardiac cath. with stenting of the first OM of the left circumflex and proximal LAD, with placement of Impella. Postprocedure patient had a brief period of aphasia, evaluated by neurology with workup completed. Telemetry sinus rhythm, without arrhythmia/PAF identified. Echo reporting EF 45%, hypokinesis of inferiolateral wall, moderate right ventricular dilation and negative bubble study. Patient is maintained on dual antiplatelet therapy. Significant clinical improvement. Denies chest pain, palpitations or shortness of breath. Cleared by neurology for discharge with recommendations noted including to consider two-week event monitoring post discharge to rule out PAF. No event monitor at DC recommended as per cardiology [employer]. Patient will be discharged home today in a stable condition with guarded prognosis pending final DC recommendations and clearance per cardiology. The impression and plan of care has been dictated as directed. : I performed a history and examination of this patient, discussed the same with the dictator. I agree with the dictator's note ,documented as a scribe. Any additional findings or plans will be noted. Patient Condition at Discharge: Stable Plan - Discharge Summary New Discharge Prescriptions: New Ticagrelor [Brilinta] 90 mg PO BID 30 Days #60 tab Mupirocin 2% Oint [Bactroban 2% Oint] 1 applic NASAL BID each Atorvastatin [Lipitor] 80 mg PO HS #30 tab Nitroglycerin Sl Tabs [Nitrostat] 0.4 mg SUBLINGUAL Q5M PRN #100 tab PRN Reason: Chest Pain Pantoprazole [Protonix] 40 mg PO AC-BRKFST #30 tab lisinopriL [Zestril] 10 mg PO DAILY #30 tab Continue Escitalopram Oxalate [Lexapro] 10 mg PO HS Aspirin EC [Ecotrin Low Dose] 81 mg PO HS Metoprolol Succinate (ER) [Toprol XL] 100 mg PO HS metFORMIN HCL [Glucophage] 2,000 mg PO HS Cholecalciferol [Vitamin D3 (25 Mcg = 1000 Iu)] 25 mcg PO DAILY Anastrozole [Arimidex] 1 mg PO HS Ascorbic Acid [Vitamin C] 1,000 mg PO HS Alendronate Sodium [Fosamax] 70 mg PO FR@0900 Discontinued Atorvastatin [Lipitor] 20 mg PO HS Discharge Medication List Aspirin EC [Ecotrin Low Dose] 81 mg PO HS 07/09/20 [History] Escitalopram Oxalate [Lexapro] 10 mg PO HS 07/09/20 [History] Metoprolol Succinate (ER) [Toprol XL] 100 mg PO HS 07/09/20 [History] Alendronate Sodium [Fosamax] 70 mg PO FR@0900 12/16/21 [History] Anastrozole [Arimidex] 1 mg PO HS 12/16/21 [History] Ascorbic Acid [Vitamin C] 1,000 mg PO HS 12/16/21 [History] Cholecalciferol [Vitamin D3 (25 Mcg = 1000 Iu)] 25 mcg PO DAILY 12/16/21 [History] metFORMIN HCL [Glucophage] 2,000 mg PO HS 12/16/21 [History] Atorvastatin [Lipitor] 80 mg PO HS #30 tab 12/20/21 [Rx] Mupirocin 2% Oint [Bactroban 2% Oint] 1 applic NASAL BID each 12/20/21 [Rx] Nitroglycerin Sl Tabs [Nitrostat] 0.4 mg SUBLINGUAL Q5M PRN #100 tab 12/20/21 [Rx] Pantoprazole [Protonix] 40 mg PO AC-BRKFST #30 tab 12/20/21 [Rx] Ticagrelor [Brilinta] 90 mg PO BID 30 Days #60 tab 12/20/21 [Rx] lisinopriL [Zestril] 10 mg PO DAILY #30 tab 12/20/21 [Rx] Follow up Appointment(s)/Referral(s): Garry Poole MD [STAFF PHYSICIAN] - 12/24/21 1:45 pm Jacky Hoyt DO [Primary Care Provider] - 12/30/21 4:10 pm Patient Instructions/Handouts: Heart Attack (DC), Heart Catheterization (DC) Activity/Diet/Wound Care/Special Instructions: Glucometer and testing supplies are in [facility], please make sure this is picked up at d/c. No Event monitor at dc recommended as per cardiology. Hemoglobin A1c 9.7, Accu-Cheks before meals and at bedtime, maintain log intake to follow-up visit with PCP for further recommendations. Discharge Disposition: HOME SELF-CARE
== END 2021-12-20 13:07 | disposition home or self-care (01) | DRG 216 ==
LOC: 3SCARD 15:38 → 2SICU 12-17 13:53 → 3SCARD 12-19 15:31
PROVIDERS: ADMIT Family Medicine; ATTEND Family Medicine
PROC: B41F1ZZ Fluoroscopy of Right Lower Extremity Arteries using Low Osmolar Contrast (ICD-10-PCS; principal; 2021-12-17 09:20)
PROC: 027135Z Dilation of Coronary Artery, Two Arteries with Two Drug-eluting Intraluminal Devices, Percutaneous Approach (ICD-10-PCS; principal; 2021-12-17 09:20)
PROC: 5A0221D Assistance with Cardiac Output using Impeller Pump, Continuous (ICD-10-PCS; principal; 2021-12-17 09:20)
PROC: 02HA3RJ Insertion of Short-term External Heart Assist System into Heart, Intraoperative, Percutaneous Approach (ICD-10-PCS; principal; 2021-12-17 09:20)
PROC: 4A023N7 Measurement of Cardiac Sampling and Pressure, Left Heart, Percutaneous Approach (ICD-10-PCS; principal; 2021-12-17 09:20)
PROC: B2111ZZ Fluoroscopy of Multiple Coronary Arteries using Low Osmolar Contrast (ICD-10-PCS; principal; 2021-12-17 09:20)
DX: I21.4 Non-ST elevation (NSTEMI) myocardial infarction (principal); G92.8 Other toxic encephalopathy; G45.9 Transient cerebral ischemic attack, unspecified; R47.01 Aphasia; E11.65 Type 2 diabetes mellitus with hyperglycemia; I25.110 Atherosclerotic heart disease of native coronary artery with unstable angina pectoris; T40.415A Adverse effect of fentanyl or fentanyl analogs, initial encounter; T42.4X5A Adverse effect of benzodiazepines, initial encounter; I10 Essential (primary) hypertension; I34.0 Nonrheumatic mitral (valve) insufficiency; E78.5 Hyperlipidemia, unspecified; F41.9 Anxiety disorder, unspecified; E66.9 Obesity, unspecified; Z68.27 Body mass index [BMI] 27.0-27.9, adult; Z79.83 Long term (current) use of bisphosphonates; Z79.82 Long term (current) use of aspirin; Z79.811 Long term (current) use of aromatase inhibitors; Z79.899 Other long term (current) drug therapy; Z79.84 Long term (current) use of oral hypoglycemic drugs; Z85.3 Personal history of malignant neoplasm of breast; Z90.12 Acquired absence of left breast and nipple; Z98.891 History of uterine scar from previous surgery; Z87.19 Personal history of other diseases of the digestive system; Z92.3 Personal history of irradiation; Z90.710 Acquired absence of both cervix and uterus; Z87.42 Personal history of other diseases of the female genital tract; Z86.73 Personal history of transient ischemic attack (TIA), and cerebral infarction without residual deficits; Z71.3 Dietary counseling and surveillance; Z88.1 Allergy status to other antibiotic agents; Z88.0 Allergy status to penicillin; Y92.230 Patient room in hospital as the place of occurrence of the external cause; Z82.49 Family history of ischemic heart disease and other diseases of the circulatory system; Z80.3 Family history of malignant neoplasm of breast
CPT/HCPCS: 70450; 70496; 70498; 71045; 80048; 80053; 80061; 80074; 81003; 83036; 83735; 84443; 85025; 85610; 85730; 87070; 93306; 94150